=== PATIENT | female | born 1975 | race Caucasian/White ===

== ENCOUNTER 2016-10-07 04:26 | Inpatient (IN) | payer OTHER ==
[~2016-10-07] VITALS: Ht 167.6 cm; Wt 67.9 kg
--- NOTE | ~2016-10-07 | EKG ---
[address] [address] ELECTROCARDIOGRAM REPORT Name: DEBBIE CAMPO Room #: 458-P ADM IN M.R.#: [id number] Admission: 10/07/16 Attend Phys: Antoine Gutierrez Discharge: Date of : 75 Report #: [id number] THIS REPORT FOR: //name// [facility] ED Test Date: 2016-10-07 Test Time: 04:57:33 Pat Name: DEBBIE CAMPO Department: Room: 458 Gender: F Processing Supervisor: RITESH : 1975 Requested By: Marcie Lopez Order Number: [id number] MD: Claus Mcmahan Measurements Intervals [place] Rate: 109 P: 45 NM: 147 QRS: 23 QRSD: 84 T: 100 QT: 290 QTc: 391 Interpretive Statements Sinus tachycardia Probable left atrial enlargement Nonspecific repol abnormality, lateral leads No previous ECG available for comparison Electronically Signed On 10-07-2016 17:56:18 CDT by Claus Mcmahan [email or web address] <ELECTRONICALLY SIGNED> By: Claus Mcmahan MD 10/07/16 1756 D: [id number] Claus Mcmahan MD /JENNIFER
--- NOTE | ~2016-10-07 | HC ---
[facility] [place] [address] CONSULTATION Name: DEBBIE CAMPO Annette Room #: 458-P ADM IN M.R.#: [id number] Admission: 10/07/16 Attend Phys: Antoine Gutierrez Discharge: Date of : 75 Report #: [id number] THIS REPORT FOR: //name// CC: Wesley Guy DATE OF SERVICE: 10/07/2016 REASON FOR CONSULTATION: End-stage renal disease. HISTORY OF PRESENT ILLNESS: The patient is well known to our service after being followed for several weeks at [facility] on chronic dialysis. She did well at that time. Fluid volume status was well controlled. She did not have issues with shortness of breath. She finally went about 5 days ago to [facility], dialyzed to treatments at [facility], now presents with severe shortness of breath and fluid overload. PAST MEDICAL HISTORY: Longstanding systemic lupus. She had lupus nephritis. She had cervical spinal stenosis, underwent operative intervention for that. She has a history of DVT, glucose intolerance and gastroesophageal reflux disease. MEDICATIONS: At the facility include p.r.n. oxycodone, Bactrim single strength 3 times weekly, melatonin, warfarin, prednisone 17.5 mg daily, carvedilol 37.5 mg b.i.d., hydroxychloroquine 200 mg b.i.d., amlodipine 2.5 mg b.i.d. and Aranesp. PAST MEDICAL HISTORY: Also remarkable for fibromyalgia, history of autoimmune hemolytic anemia and thrombocytopenia. SOCIAL HISTORY: She has been a smoker intermittently, of course not recently with her hospitalization. She is . FAMILY HISTORY: Negative for renal disease. REVIEW OF SYSTEMS: Cannot be done as the patient is quite short of breath on CPAP and dialysis has been initiated. PHYSICAL EXAMINATION: GENERAL: Chronically ill, cushingoid appearing woman, in some respiratory distress on CPAP. SKIN: Unremarkable. SKELETAL: Cushingoid appearance. HEENT: Extraocular movements are full. Vision appears to be intact. No JVD. CHEST: Shows diffuse crackles and rhonchi. HEART: Distant but regular. ABDOMEN: Soft. [facility] [address] [place] [address] CONSULTATION Name: DEBBIE CAMPO Annette Room #: 458-P [facility] IN .R.#: [id number] Admission: 10/07/16 Attend Phys: Antoine Gutierrez Discharge: Date of : 75 Report #: [id number] EXTREMITIES: Show no edema. NEUROLOGIC: Moving all extremities. LABORATORY DATA: The hemoglobin is 8.2, white count 27.1 and platelets 229, sodium 127, potassium 4.7, chloride 92, bicarbonate 25, creatinine 2.8, BUN 28. Glucose was 215, INR 1.9. Chest x-ray showed diffuse infiltrates, probably heart failure. ASSESSMENT AND PLAN: 1. Acute respiratory insufficiency. She appears to be volume overloaded. 3.5-liter ultrafiltration dialysis is undertaken and we will see how she does with that and see if that helps take care of her shortness of breath. I will actually increase that up to 4 liters on ultrafiltration and she may will need dialysis again tomorrow. She will have to be reevaluated for that. 2. Systemic lupus with lupus nephritis. 3. Diabetes mellitus, steroid dependent. 4. History of bipolar disorder. 5. History of autoimmune hemolytic anemia. 6. History of deep venous thrombosis, on chronic warfarin. 7. Possible pneumonia. She is being seen by Pulmonary. We will have to see how that checks out. She does have a very high white count. <ELECTRONICALLY SIGNED> By: John Simental MD 10/08/16 0718 0909 1049 Paulo Lepe MD /nt
--- NOTE | ~2016-10-07 | 2DMMODE ---
[facility] [address] [place] [address] 2 D/M-MODE ECHOCARDIOGRAM Name: DEBBIE CAMPO Room #: 458-P ADM IN ..#: [id number] Admission: 10/07/16 Attend Phys: Wesley Bates Discharge: Date of : 75 Date of Service: 10/07/16 1338 Report #: [id number] THIS REPORT FOR: //name// APPROVED REPORT Study performed: 10/07/2016 12:09:44 EXAM: Comprehensive 2D, Doppler, and color-flow Echocardiogram Patient Location: Bedside Room #: 458 Status: routine Other Information Study Quality: Adequate/patient sitting up in bed on CPAP. Indications CHF, ESRD, respiratory distress. 2D Dimensions RVDd: 36.46 mm LVEF(%): 61.77 (>50%) IVSd: 9.41 (7-11mm) LVOT Diam: 19.74 (18-24mm) LVDd: 52.16 mm PWd: 9.26 (7-11mm) Ascending Ao: 27.74 (22-36mm) LVDs: 34.71 (25-40mm) Aortic Root: 29.96 mm Wheat's LVEF: 61.77 % Volumes Left Atrial Volume (Systole) Single Plane 4CH: 46.00 mL Single Plane 2CH: 35.24 mL LA ESV Index: 27.00 mL/m2 Aortic Valve AoV Peak Pankaj.: 1.85 m/s AO Peak Gr.: 13.64 mmHg LVOT Max P.17 mmHg LVOT Max V: 1.02 m/s RANJIT Vmax: 1.69 cm2 Mitral Valve E/A Ratio: 1.6 MV Decel. Time: 225.37 ms MV E Max Pankaj.: 1.41 m/s MV A Pankaj.: 0.89 m/s MV PHT: 65.36 ms [facility] [place] [address] 2 D/M-MODE ECHOCARDIOGRAM Name: DEBBIE CAMPO Room #: 458-P [facility] IN .R.#: [id number] Admission: 10/07/16 Attend Phys: Wesley Bates Discharge: Date of : 75 Date of Service: 10/07/16 1338 Report #: [id number] IVRT: 48.44 ms Pulmonary Valve PV Peak Pankaj.: 1.16 m/s PV Peak Gr.: 5.41 mmHg Pulmonary Vein P Vein S: 0.54 m/s P Vein D: 0.56 m/s P Vein S/D Ratio: 0.96 Tricuspid Valve TR Peak Pankaj.: 3.59 m/s RAP Estimate: 5.00 mmHg TR Peak Gr.: 51.64 mmHg PA Pressure: 57.00 mmHg Left Ventricle The left ventricle is normal size. There is normal LV segmental wall motion. There is normal left ventricular wall thickness. Left ventricular systolic function is normal. LVEF is 55-60%. The left ventricular diastolic function is normal. Right Ventricle The right ventricle is normal size. The right ventricular systolic function is normal. Atria The left atrium size is normal. The right atrium size is normal. Aortic Valve The aortic valve is normal in structure. No aortic regurgitation is present. There is no aortic valvular stenosis. Mitral Valve Mitral valve is calcified. Moderate to severe mitral regurgitation No evidence of mitral valve stenosis. Tricuspid Valve The tricuspid valve is normal in structure. There is moderate tricuspid regurgitation. The right atrial pressure is estimated at 5 mmHg. There is moderate pulmonary hypertension with an estimated PAP of 50-55mmHg. Pulmonic Valve The pulmonary valve is normal in structure. Mild pulmonic regurgitation. [address] [address] 2 D/M-MODE ECHOCARDIOGRAM Name: DEBBIE CAMPO Annette Room #: 458-P [facility] IN [facility]#: [id number] Admission: 10/07/16 Attend Phys: Wesley Bates Discharge: Date of : 75 Date of Service: 10/07/16 1338 Report #: [id number] [employer] The aortic root is normal in size. The ascending aorta is normal in size. IVC is normal in size and collapses >50% with inspiration. Pericardium There is no pericardial effusion. <Conclusion> The left ventricle is normal size. LVEF is 55-60%. The aortic valve is normal in structure. Mitral valve is calcified. Moderate to severe mitral regurgitation The tricuspid valve is normal in structure. There is moderate tricuspid regurgitation. The right atrial pressure is estimated at 5 mmHg. There is moderate pulmonary hypertension with an estimated PAP of 50-55mmHg. The pulmonary valve is normal in structure. Mild pulmonic regurgitation. <ELECTRONICALLY SIGNED> By: Ramirez Lennon MD 10/07/16 1338 1338 1338 Ramirez Lennon MD /INF
--- NOTE | ~2016-10-07 | HC ---
[facility] [place] [address] CONSULTATION Name: DEBBIE CAMPO Room #: 458-P ADM IN M.R.#: [id number] Admission: 10/07/16 Attend Phys: Antoine Gutierrez Discharge: Date of : 75 Report #: [id number] THIS REPORT FOR: //name// CC: Wesley Guy DATE OF SERVICE: 10/07/2016 REASON FOR CONSULTATION: Respiratory failure. IMPRESSION: 1. Acute on chronic respiratory failure. 2. Bilateral infiltrates. 3. Immunosuppression. 4. History of lupus. 5. Chronic renal failure. 6. Mitral regurgitation. 7. Pulmonary hypertension. 8. Diabetes. 9. Bipolar disorder. 10. History of autoimmune hemolytic anemia. 11. History of deep venous thrombosis, leg and arm with IVC filter and warfarin. PLAN: Antibiotics per ID, aerosol therapy, BiPAP. We will do a venous Doppler. Continue anticoagulation. We will ask Dr. Kc to assist. HISTORY OF PRESENT ILLNESS: This is a very pleasant 41-year-old female with history of lupus, lupus nephritis, history of DVT, was doing well yesterday and per family today, had progressive shortness of breath. HOME MEDICATIONS: Included oxycodone, Bactrim 3 times a week, melatonin, prednisone 17.5 daily, Coreg, hydroxychloroquine, amlodipine and Aranesp. SOCIAL HISTORY: Positive tobacco in past, . FAMILY HISTORY: Noncontributory. ALLERGIES: DEMEROL, MORPHINE, NICOTINE AND CIPRO. PAST SURGICAL HISTORY: Include hysterectomy and neck surgery. REVIEW OF SYSTEMS: Positive shortness of breath, cough, leg weakness and GERD, dialysis, right chest dialysis catheter, no nausea or vomiting. PHYSICAL EXAMINATION: VITAL SIGNS: Temperature 98.6, pulse 99, respirations 33, BP 110/76. [facility] [address] [place] [address] CONSULTATION Name: DEBBIE CAMPO Annette Room #: 458-P [facility] IN .R.#: [id number] Admission: 10/07/16 Attend Phys: Antoine Gutierrez Discharge: Date of : 75 Report #: [id number] EYES: Negative icterus. NECK: BiPAP on. LUNGS: Crackles bilaterally. HEART: Regular with murmur. ABDOMEN: Bowel sounds present. EXTREMITIES: Showed no cyanosis or edema, on BiPAP. LABORATORY DATA: pH 7.49, pCO2 of 33, pO2 88 on 50%. Echo showed PA pressure 50-55, ejection fraction 55-60, moderate to severe MR. White count 27, hemoglobin 8.2, platelets 229, we will follow closely with you. By: 1543 0789 Davon Ibanez MD /nt
--- NOTE | ~2016-10-07 | H ---
[facility] [place] [address] HISTORY AND PHYSICAL Name: DEBBIE CAMPO Annette Room #: 458-P ADM IN M.R.#: [id number] Admission: 10/07/16 Attend Phys: Antoine Gutierrez Discharge: Date of : 75 Report #: [id number] THIS REPORT FOR: //name// CC: Wesley Guy DATE OF SERVICE: 10/07/2016 CHIEF COMPLAINT: Shortness of breath. HISTORY OF PRESENT ILLNESS: The patient is a 41-year-old female who was transferred from an LTAC facility for evaluation of shortness of breath. She has been hospitalized there for a month with a combination of respiratory and renal issues. She had an episode a couple of weeks ago where she had pulmonary edema and received extra hemodialysis; however, yesterday, the EMS reported that her O2 sats were about 60-70% on room air. They attempted to place CPAP, which she was not tolerate to. Normally, she wears 5 liters of oxygen at baseline. Has had apparent episode of respiratory failure requiring intubation in the past. PAST MEDICAL HISTORY: Lupus nephritis, end-stage renal disease, DVT, sepsis, GERD, diabetes, bipolar, hysterectomy, spinal stenosis. PAST SURGICAL HISTORY: Unknown. FAMILY HISTORY: Noncontributory. SOCIAL HISTORY: No chronic alcohol or tobacco use. ALLERGIES: DEMEROL, MORPHINE, NICOTINE, CIPRO. MEDICATIONS: Senokot, Tylenol, Bactrim, Coumadin, melatonin, DuoNeb, Norvasc, Protonix, prednisone, Coreg, Plaquenil, Levemir, oxycodone. REVIEW OF SYSTEMS: She cannot provide a review. PHYSICAL EXAMINATION: VITAL SIGNS: Temperature 36.9, pulse 104, respirations 17, blood pressure 141/95, O2 sat 92% to 98% on BiPAP. GENERAL: She looks chronically ill. She opens her eyes to her name but just back to sleep. HEAD AND NECK: Unremarkable. LUNGS: Diminished breath sounds in the base. HEART: Regular, no murmur. There is a hemodialysis catheter in the right upper chest, ongoing dialysis. ABDOMEN: Soft, normoactive bowel sounds. EXTREMITIES: No edema. [facility] [address] [place] [address] HISTORY AND PHYSICAL Name: DEBBIE CAMPO Room #: 458-P [facility] IN ..#: [id number] Admission: 10/07/16 Attend Phys: Antoine Gutierrez Discharge: Date of : 75 Report #: [id number] NEUROLOGIC: She moves all extremities, global strength about 3/5 throughout. LABORATORY DATA: Chest x-ray reviewed. ASSESSMENT: 1. Acute hypoxic respiratory failure. 2. Metabolic acidosis. 3. End-stage renal disease. 4. Lupus. 5. Deep venous thrombosis. 6. Healthcare-associated pneumonia. 7. Sepsis due to the above. 8. Diabetes type 2. PLAN: She is receiving ultrafiltration currently. Dr. Ibanez has assessed her as well. I will continue her medications and transfer including her Coreg and prednisone and Coumadin. For now, hold Plaquenil to understanding a possible infection and I have asked Dr. Hector Guy to see her in consultation. She remains critically ill. <ELECTRONICALLY SIGNED> By: Nii Romero MD 10/08/16 0959 1016 1208 Nii Romero MD /nt
--- NOTE | ~2016-10-07 | H ---
[facility] [place] [address] HISTORY AND PHYSICAL Name: DEBBIE CAMPO Room #: 458-P ADM IN M.R.#: [id number] Admission: 10/07/16 Attend Phys: Antoine Gutierrez Discharge: Date of : 75 Report #: [id number] THIS REPORT FOR: //name// CC: Wesley Guy INFECTIOUS DISEASE CONSULTATION REASON FOR CONSULTATION: I was asked to evaluate concerning bilateral pulmonary infiltrates. HISTORY OF PRESENT ILLNESS: The patient was a 41-year-old with known systemic lupus erythematosus with lupus nephritis and pulmonary disease. In the last 48 hours, she has had progressive shortness of breath. Now on BiPAP. Chest x-ray had shown bilateral pulmonary infiltrates, consistent with edema. No fever, chills or sweats. She has had intermittent cough, with no sputum production. She has had no recent antibiotic use, other than prophylaxis with Bactrim. She has been institutionalized for the last 4 months. Initially, she was diagnosed with lupus pneumonia off bronchoscopy. Increased corticosteroids. She had diffuse lower extremity weakness and underwent an anterior cervical fusion last month. This was for cervical spinal stenosis. She underwent dialysis today. Still is on BiPAP. ALLERGIES: DEMEROL, MORPHINE, NICOTINE and CIPRO. PAST MEDICAL HISTORY: Lupus nephritis; right chest dialysis catheter, having been on dialysis now for the last 3 months; spinal stenosis; DVT; gastroesophageal reflux; fibromyalgia; autoimmune hemolytic anemia and thrombocytopenia. FAMILY HISTORY: Noncontributory. SOCIAL HISTORY: Past smoker. She is . REVIEW OF SYSTEMS: Noted above with no nausea, vomiting or diarrhea. She does urinate. No rash. She has had no IOS DEVELOPER disease. PHYSICAL EXAMINATION: VITAL SIGNS: Afebrile and hemodynamically stable. GENERAL: She was alert and cooperative. She is on 70% CPAP by mask. HEENT: Eyes are unremarkable. NECK: Supple. Anterior neck incision unremarkable. LUNGS: Crackles heard posteriorly. HEART: Regular, without murmur or rub. Right chest dialysis catheter site unremarkable. ABDOMEN: Obese, soft, nontender. No hepatosplenomegaly or mass appreciated. EXTREMITIES: Unremarkable. [facility] [address] [place] [address] HISTORY AND PHYSICAL Name: DEBBIE CAMPO Annette Room #: 458-P [facility] IN [facility]#: [id number] Admission: 10/07/16 Attend Phys: Antoine Gutierrez Discharge: Date of : 75 Report #: [id number] LABORATORY DATA: Hemoglobin 8.2, WBC 27.5, segs 87%, lymphs 10% and platelet count 229,000. Chest x-ray, bilateral pulmonary infiltrates, consistent with congestive heart failure. Sodium 127, potassium 4.7, bicarbonate 25 and creatinine 2.8. ABG on 70%, pO2 of 71, pCO2 of 41 and pH of 7.35. Blood cultures are negative so far. IMPRESSION: A 41-year-old with bilateral pulmonary infiltrates, immunosuppressed on prednisone for lupus. Cause of her infiltrate, I suspect, most likely is edema for she did change dialysis program recently. Her echocardiogram shows normal ejection fraction. There was [id number] mitral regurgitation and moderate pulmonary hypertension. Other consideration would be flare-up of her lupus pulmonary disease. PLAN: Recommend continuing IV antibiotic therapy pending cultures. We will attempt sputum culture. I have discussed with pulmonary medicine. We will see how she does with aggressive dialysis. <ELECTRONICALLY SIGNED> By: Hector Guy MD 10/09/16 0905 1350 1432 Hector Guy MD /nt
--- NOTE | ~2016-10-07 | D ---
[facility] [place] [address] DISCHARGE SUMMARY Name: PAULINEEUGENEDEBBIE Annette Room #: 458-P [facility] IN M.R.#: [id number] Admission: 10/07/16 Attend Phys: Antoine Gutierrez Discharge: 10/15/16 Date of : 75 Report #: [id number] THIS REPORT FOR: //name// CC: Wesley Guy FINAL DIAGNOSES: 1. Acute hypoxic respiratory failure. 2. End-stage renal disease. 3. Pulmonary edema. 4. Hypertension. 5. Lupus. 6. Chronic anticoagulation. 7. History of deep venous thrombosis. 8. History of inferior vena cava filter. HOSPITAL COURSE: The patient was admitted with shortness of breath, initially to ICU, requiring BiPAP. She was diagnosed with pulmonary edema and received additional aggressive hemodialysis. She had additional sessions during her stay. Her weight came down 6-8 kg during her stay. Echocardiogram revealed mitral regurgitation. The cardiology service did not feel that there was further treatment indicated as she had already been assessed at and felt to be a nonsurgical candidate. Other home medications were continued. She had another episode of pulmonary edema with hypoxia requiring BiPAP, on hemodialysis. Ultimately, the renal team talked to her about fluid restrictions, which she was really not complying with. We felt this seemed to be the main issue that with extra fluids and mitral regurg, she developed pulmonary edema. The last 4 hospital day, she was stable on oxygen via nasal cannula between 2 and 4 liters, she was not requiring BiPAP and remained medically stable. PHYSICAL EXAMINATION ON THE DAY OF DISCHARGE: GENERAL/VITAL SIGNS: She was awake and alert with stable vital signs. LUNGS: Clear. HEART: Regular. ABDOMEN: Soft, normoactive bowel sounds. EXTREMITIES: No edema. DISPOSITION: Return to [facility] under the care of Dr. Guy, renal diet, 1500 mL fluid restrictions. We will transfer medications for continued dialysis. <ELECTRONICALLY SIGNED> By: Nii Romero MD 10/15/16 1623 0943 1245 iNi Romero MD /nt
--- NOTE | ~2016-10-07 | HC ---
[facility] [address] [place] [address] CONSULTATION Name: DEBBIE CAMPO Room #: 458-P ADM IN M.R.#: [id number] Admission: 10/07/16 Attend Phys: Antoine Gutierrez Discharge: Date of : 75 Report #: [id number] THIS REPORT FOR: //name// CC: Wesley YEE DICTATION By: 1057 1423 Davon Ibanez MD /nt
[2016-10-07 04:58] LABS: ABG SAMPLE TYPE ARTERIAL; BE(vivo) -6.7 mmol/L (-2 to +3); HCO3 19.8 mmol/L (22.0-26.0); LACTATE 2.13 mmol/L (0.5-2.0); O2(CT) 12.5 mL/dL (15.0-23.0); O2Hb 95.4 % (92.0-98.0); PCO2 44.1 mmHg (35.0-45.0); PO2 104.2 mmHg (80.0-100.0); STICK SITE R.RADIAL; sO2 97.1 % (92.0-98.0); tCO2 21.1 mmol/L (24.0-30.0)
[2016-10-07 05:02] LABS: HEMATOCRIT 25.3 % (37.0-47.0); HEMOGLOBIN 8.2 gm/dL (12.0-15.0); MANUAL DIFF YES; MCH 28.8 pg (26.0-34.0); MCHC 32.2 g/dL (28.0-37.0); MCV 89.4 fL (80.0-100.0); PLATELET COUNT 229 thou/uL (150-400); RBC 2.84 mil/uL (4.20-5.00); RDW 18.7 % (10.5-14.5); WBC 27.1 thou/uL (4.0-11.0)
[2016-10-07] MEDS ORDERED: PAIN & FEVER500 MG PO (05:02)
[2016-10-07] MEDS ORDERED: SENEXON-S TABL1 EACH (05:02)
[2016-10-07] MEDS ORDERED: COUMADIN 4 MG TA4 M1 PO (05:03)
[2016-10-07] MEDS ORDERED: BACTRIM DS TAB1 EACH (05:03)
[2016-10-07] MEDS ORDERED: MELATONIN5 M4 (05:03)
[2016-10-07] MEDS ORDERED: DUONEB 2.5-0.5 M3 ML INH (05:04)
[2016-10-07] MEDS ORDERED: NORVASC2.5 M1 (05:04)
[2016-10-07] MEDS ORDERED: PREDNISONE 5 MG5 MG (05:05)
[2016-10-07] MEDS ORDERED: PROTONIX 20 MG20 MG (05:05)
[2016-10-07] MEDS ORDERED: HYDROXYCHLOROQ200 M1 (05:06)
[2016-10-07] MEDS ORDERED: CARVEDILOL12.5 MG PO ×2 (05:06→09:23)
[2016-10-07 05:07] LABS: ANION GAP 10 mmol/L (7-16); BUN 28 mg/dL (7-18); CALCIUM 8.4 mg/dL (8.5-10.1); CHLORIDE 92 mmol/L (98-107); CO2 25 mmol/L (21-32); CREATININE 2.8 mg/dL (0.6-1.0); GLUCOSE 215 mg/dL (74-106); POTASSIUM 4.7 mmol/L (3.5-5.1); SODIUM 127 mmol/L (136-145)
[2016-10-07] MEDS ORDERED: DUONEB 2.5-0.5 M3 ML (05:07)
[2016-10-07] MEDS ORDERED: CALMOSEPTINE O3.5 GM TOP (05:07)
[2016-10-07] MEDS ORDERED: [UNRECOGNIZED DRUG - SUPPLY] (05:11)
[2016-10-07] MEDS ORDERED: LEVEMIR FL100 UNIT/2 SUBQ (05:12)
[2016-10-07] MEDS ORDERED: ONDANSETRON HCL4 M2 (05:12)
[2016-10-07] MEDS ORDERED: OXYCONTIN10 M1 PO (05:13)
[2016-10-07 05:16] LABS: TROPONIN-I < 0.04 ng/mL (<0.04-0.07)
[2016-10-07 06:09] LABS: INR 1.9; PROTIME 19.3 Seconds (9.3-11.4)
[2016-10-07 06:52] VITALS: BP 138/67
[2016-10-07 07:09] VITALS: BP 141/95
[2016-10-07 07:45] LABS: ABG SAMPLE TYPE ARTERIAL; BE(vivo) -1.5 mmol/L (-2 to +3); LACTATE 1.32 mmol/L (0.5-2.0); O2(CT) 11.7 mL/dL (15.0-23.0); O2Hb 90.9 % (92.0-98.0); PCO2 44.1 mmHg (35.0-45.0); PO2 71.5 mmHg (80.0-100.0); STICK SITE R.RADIAL; pH 7.354 (7.360-7.450); sO2 93.7 % (92.0-98.0); tCO2 25.4 mmol/L (24.0-30.0)
[2016-10-07 07:46] LABS: ABG COMMENT CPAP 8 SPON RR 40
[2016-10-07 08:05] LABS: ABSOLUTE NEUTROPHILS 23.6 thou/uL (1.4-8.2); ANISOCYTOSIS 2+; METAMYELOCYTES 1 %; TOTAL CELL COUNT 100
[2016-10-07 08:06] LABS: HYPOCHROMASIA 1+; POLYCHROMASIA SLIGHT
[2016-10-07] MEDS ORDERED: PROTONIX40 M4 PO (09:21)
[2016-10-07] MEDS ORDERED: VITAMIN B-1100 M1 PO (09:22)
[2016-10-07] MEDS ORDERED: BACTRIM DS TAB1 EACH PO (09:26)
[2016-10-07] MEDS ORDERED: ARANESP100 MCG/1 IJ (09:27)
[2016-10-07 12:00] VITALS: BP 110/76
[2016-10-07 14:24] LABS: ABG SAMPLE TYPE ARTERIAL; BE(vivo) 1.4 mmol/L (-2 to +3); HCO3 24.5 mmol/L (22.0-26.0); LACTATE 1.13 mmol/L (0.5-2.0); O2(CT) 11.6 mL/dL (15.0-23.0); O2Hb 95.6 % (92.0-98.0); PCO2 32.8 mmHg (35.0-45.0); PO2 87.9 mmHg (80.0-100.0); pH 7.492 (7.360-7.450); sO2 97.4 % (92.0-98.0); tCO2 25.6 mmol/L (24.0-30.0)
[2016-10-07 14:25] LABS: STICK SITE R.RADIAL
[2016-10-07 15:45] VITALS: BP 135/84
[2016-10-07 19:41] VITALS: BP 145/86
[2016-10-07 23:47] VITALS: BP 130/83
[2016-10-08 03:31] VITALS: BP 126/80
[2016-10-08 04:21] LABS: RBC 2.23 mil/uL (4.20-5.00); RDW 18.4 % (10.5-14.5)
[2016-10-08 04:24] LABS: MCH 29.2 pg (26.0-34.0); MCHC 33.7 g/dL (28.0-37.0); MCV 86.8 fL (80.0-100.0)
[2016-10-08 04:42] LABS: ALBUMIN 2.2 g/dL (3.4-5.0); CALCIUM 8.2 mg/dL (8.5-10.1)
[2016-10-08 04:48] LABS: POTASSIUM 3.6 mmol/L (3.5-5.1)
[2016-10-08 04:52] LABS: HEMATOCRIT 19.3 % (37.0-47.0); HEMOGLOBIN 6.5 gm/dL (12.0-15.0)
[2016-10-08 07:16] LABS: ABG SAMPLE TYPE ARTERIAL; BE(vivo) 5.5 mmol/L (-2 to +3); HCO3 29.3 mmol/L (22.0-26.0); O2(CT) 8.9 mL/dL (15.0-23.0); O2Hb 87.4 % (92.0-98.0); PCO2 39.6 mmHg (35.0-45.0); PO2 56.2 mmHg (80.0-100.0); STICK SITE L.RADIAL; pH 7.487 (7.360-7.450); sO2 91.4 % (92.0-98.0); tCO2 30.5 mmol/L (24.0-30.0)
[2016-10-08 08:20] VITALS: BP 153/88
[2016-10-08 12:25] VITALS: BP 105/76
[2016-10-08 14:04] VITALS: BP 112/74; BP 136/88
[2016-10-08 16:00] VITALS: BP 124/74
[2016-10-08 20:00] VITALS: BP 109/75
[2016-10-09 04:05] VITALS: BP 138/84
[2016-10-09 06:20] LABS: HEMATOCRIT 25.1 % (37.0-47.0); HEMOGLOBIN 8.3 gm/dL (12.0-15.0); MCH 28.4 pg (26.0-34.0); MCHC 33.1 g/dL (28.0-37.0); MCV 86.1 fL (80.0-100.0); RBC 2.92 mil/uL (4.20-5.00); RDW 18.3 % (10.5-14.5); WBC 7.2 thou/uL (4.0-11.0)
[2016-10-09 06:27] LABS: ALBUMIN 2.3 g/dL (3.4-5.0); CALCIUM 8.6 mg/dL (8.5-10.1); CREATININE 2.2 mg/dL (0.6-1.0); PHOSPHORUS 2.6 mg/dL (2.5-4.9); POTASSIUM 3.6 mmol/L (3.5-5.1)
[2016-10-09 08:00] VITALS: BP 146/90
[2016-10-09 16:00] VITALS: BP 127/105
[2016-10-09 19:12] VITALS: BP 136/91
[2016-10-10 03:34] VITALS: BP 149/97
[2016-10-10 06:02] LABS: HEMATOCRIT 24.8 % (37.0-47.0); HEMOGLOBIN 8.3 gm/dL (12.0-15.0); MCH 28.6 pg (26.0-34.0); MCHC 33.6 g/dL (28.0-37.0); MCV 85.1 fL (80.0-100.0); RBC 2.91 mil/uL (4.20-5.00); RDW 17.6 % (10.5-14.5); WBC 7.9 thou/uL (4.0-11.0)
[2016-10-10 06:08] LABS: INR 1.8; PROTIME 18.8 Seconds (9.3-11.4)
[2016-10-10 06:22] LABS: ALBUMIN 2.6 g/dL (3.4-5.0); CALCIUM 8.9 mg/dL (8.5-10.1); CREATININE 3.1 mg/dL (0.6-1.0); PHOSPHORUS 3.4 mg/dL (2.5-4.9); POTASSIUM 4.3 mmol/L (3.5-5.1)
[2016-10-10 09:57] VITALS: BP 157/116
[2016-10-10 16:00] VITALS: BP 149/99
[2016-10-10 17:47] VITALS: BP 143/95
[2016-10-10 18:07] LABS: BLASTOMYCES-IMMUNODIFF Negative (Neg:<1:1); HISTOPLASMA-IMMUNODIFF Negative (Neg:<1:1)
[2016-10-10 19:43] VITALS: BP 121/81
[2016-10-11 04:19] VITALS: BP 142/91
[2016-10-11 06:55] LABS: INR 2.1; PROTIME 21.8 Seconds (9.3-11.4)
[2016-10-11 08:14] VITALS: BP 159/104
[2016-10-11 13:14] VITALS: BP 138/95
[2016-10-11 17:08] LABS: ASPERGILLUS FLAVUS-ID Negative (Neg:<1:1); ASPERGILLUS FUMIGATUS-ID Negative (Neg:<1:1); ASPERGILLUS NIGER-ID Negative (Neg:<1:1)
[2016-10-12 03:38] VITALS: BP 129/89
[2016-10-12 03:43] LABS: HEMATOCRIT 25.2 % (37.0-47.0); HEMOGLOBIN 8.5 gm/dL (12.0-15.0); MCH 28.5 pg (26.0-34.0); MCHC 33.7 g/dL (28.0-37.0); MCV 84.6 fL (80.0-100.0); RBC 2.98 mil/uL (4.20-5.00); RDW 17.6 % (10.5-14.5); WBC 10.1 thou/uL (4.0-11.0)
[2016-10-12 04:03] LABS: ALBUMIN 2.6 g/dL (3.4-5.0); CALCIUM 8.6 mg/dL (8.5-10.1); PHOSPHORUS 3.8 mg/dL (2.5-4.9); POTASSIUM 3.8 mmol/L (3.5-5.1)
[2016-10-12 07:27] VITALS: BP 153/100
[2016-10-12 12:20] VITALS: BP 156/93
[2016-10-12 19:44] VITALS: BP 161/100
[2016-10-13 03:40] VITALS: BP 134/91
[2016-10-13 07:14] VITALS: BP 144/94
[2016-10-13 11:24] VITALS: BP 127/84
[2016-10-13 16:25] VITALS: BP 156/99
[2016-10-13 19:16] VITALS: BP 137/92
[2016-10-14 03:51] VITALS: BP 156/100
[2016-10-14 12:02] VITALS: BP 158/83
[2016-10-14 15:37] VITALS: BP 134/84
[2016-10-14 19:33] VITALS: BP 131/97
[2016-10-15 02:18] VITALS: BP 138/94
[2016-10-15 02:30] VITALS: BP 138/94
[2016-10-15 03:35] VITALS: BP 141/96
[2016-10-15 08:00] VITALS: BP 141/96; BP 156/96
[2016-10-15] MEDS ORDERED: AMLODIPINE BESYL5 M1 PO (09:37)
[2016-10-15] MEDS ORDERED: AUGMENTIN 500-1 EACH PO (09:37)
[2016-10-15] MEDS ORDERED: HYDROCODON-ACE1 EAC7 PO (09:37)
[2016-10-15 12:40] VITALS: BP 131/80
== END 2016-10-15 14:46 | DRG 871 ==
LOC: ER 04:26 → EROBS 05:43 → 4W 05:43
PROVIDERS: Emergency Medicine; Internal Medicine; Internal Medicine Geriatric Medicine; Internal Medicine Nephrology; Internal Medicine Pulmonary Disease; Specialist
PROC: 5A09457 Assistance with Respiratory Ventilation, 24-96 Consecutive Hours, Continuous Positive Airway Pressure (ICD-10-PCS; principal; 2016-10-07)
PROC: 30233N1 Transfusion of Nonautologous Red Blood Cells into Peripheral Vein, Percutaneous Approach (ICD-10-PCS; 2016-10-08)
PROC: 5A1D60Z (ICD-10-PCS; 2016-10-08)
DX: A41.9 Sepsis, unspecified organism (principal); J18.9 Pneumonia, unspecified organism; N18.6 End stage renal disease; J96.21 Acute and chronic respiratory failure with hypoxia; I13.2 Hypertensive heart and chronic kidney disease with heart failure and with stage 5 chronic kidney disease, or end stage renal disease; D59.1 Other autoimmune hemolytic anemias; E87.2 Acidosis; I50.30 Unspecified diastolic (congestive) heart failure; K21.9 Gastro-esophageal reflux disease without esophagitis; E11.22 Type 2 diabetes mellitus with diabetic chronic kidney disease; I08.1 Rheumatic disorders of both mitral and tricuspid valves; F31.9 Bipolar disorder, unspecified; M79.7 Fibromyalgia; M32.14 Glomerular disease in systemic lupus erythematosus; M32.9 Systemic lupus erythematosus, unspecified; I27.2 Other secondary pulmonary hypertension; E66.9 Obesity, unspecified; Z79.01 Long term (current) use of anticoagulants; Y95 Nosocomial condition; Z79.899 Other long term (current) drug therapy; Z87.891 Personal history of nicotine dependence; Z68.24 Body mass index [BMI] 24.0-24.9, adult; Z99.2 Dependence on renal dialysis; Z90.710 Acquired absence of both cervix and uterus; Z88.1 Allergy status to other antibiotic agents; Z88.5 Allergy status to narcotic agent; Z88.8 Allergy status to other drugs, medicaments and biological substances; Z86.718 Personal history of other venous thrombosis and embolism
CPT/HCPCS: 10045; 32100

== ENCOUNTER 2016-10-16 03:16 | Inpatient (IN) | payer OTHER ==
[~2016-10-16] VITALS: Ht 167.6 cm; Wt 70.8 kg
[2016-10-16] VITALS (30 sets, daily range): BP systolic 117–178; BP diastolic 63–106
--- NOTE | ~2016-10-16 | EKG ---
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 : 1975 Requested By: Chris Goetz Order Number: [id number] MD: Chris Goetz Measurements Intervals [place] Rate: 99 P: 51 [place]: 142 QRS: 16 QRSD: 83 T: 140 QT: 413 QTc: 531 Interpretive Statements Sinus rhythm Biatrial enlargement Probable LVH with secondary repol abnrm Prolonged QT interval Compared to ECG 10/07/2016 04:57:33 no significant change was found Electronically Signed On 10-19-2016 11:57:03 CDT by Chris Goetz [email or web address] <ELECTRONICALLY SIGNED> By: Chris Goetz MD, [facility] 10/19/16 1157 0721 07 Chris Goetz MD, [facility] /EPI
--- NOTE | ~2016-10-16 | H ---
[facility] [place] [address] HISTORY AND PHYSICAL Name: DEBBIE CAMPO Room #: 237-P ADM IN M.R.#: [id number] Admission: 10/16/16 Attend Phys: Antoine Gutierrez Discharge: Date of : 75 Report #: [id number] THIS REPORT FOR: //name// CC: Davon Guy CHIEF COMPLAINT: Shortness of breath. HISTORY OF PRESENT ILLNESS: The patient is a 41-year-old female with multiple medical problems, came back from the senior living facility after just being discharged for shortness of breath. She recently just had about a 10-day hospital stay for pulmonary edema requiring extra hemodialysis sessions. During this time, an echocardiogram revealed mitral and tricuspid regurgitation. This is similar to studies that were performed according to the family at [facility] late last year, perhaps in February 2016. Her sister, who is a nurse, reports at that time the cardiology team in did not feel her valve needed surgical replacement. Her sister said that she had very similar sudden hypoxic episodes while at , but perhaps not as severe. She had one or two other episodes very similar while she was in a senior living facility in [place] and was admitted urgently to [facility] for emergent hemodialysis related to the sudden developed of pulmonary edema and severe hypoxia even to the point of requiring BiPAP. While she was at [facility] facility, she had 2 episodes that required earlier hemodialysis and the use of either high-flow nasal cannula oxygen and/or BiPAP. She was just in [facility] for about a week when she developed a sudden onset in the middle of night of hypoxia and pulmonary edema requiring admission to ICU here with BiPAP and emergent hemodialysis during this last hospital stay. I believe she required 4 dialysis sessions during her stay for fluid and weight removal. Last night I was called that she was complaining of shortness of breath, although her oxygen saturations were in the mid 90s on nasal cannula. She attempted placement of BiPAP which she could not tolerate. By the time EMS arrived and transported her to ER, she was severely hypoxic with sats in the 80s on a nonrebreather. 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 History of DVT, she has an IVC filter. PAST SURGICAL HISTORY: During her hospital stay at , they performed a left carotid endarterectomy. FAMILY HISTORY: Unknown. SOCIAL HISTORY: She is and was living at home prior to this illness. She has been hospitalized since approximately February 2016. ALLERGIES: DEMEROL, MORPHINE, NICOTINE, CIPRO. [facility] [address] [place] [address] HISTORY AND PHYSICAL Name: DEBBIE CAMPO Annette Room #: 237-P ADM IN M.R.#: [id number] Admission: 10/16/16 Attend Phys: Antoine Gutierrez Discharge: Date of : 75 Report #: [id number] MEDICATIONS: Amoxicillin, DuoNeb, Coumadin, Coreg 37.5 b.i.d., Norvasc 5 mg, hydrocodone 5 mg, Senokot, prednisone 17.5 mg, thiamine, melatonin. REVIEW OF SYSTEMS: She is currently on BiPAP, on hemodialysis. She is awake and alert. PHYSICAL EXAMINATION: VITAL SIGNS: Temperature 37.1, pulse 108, respirations 22, blood pressure 137/92 and O2 sat 100% on BiPAP. GENERAL: She looks chronically ill. LUNGS: Clear anteriorly. HEART: Regular. ABDOMEN: Soft, normoactive bowel sounds. EXTREMITIES: No edema. ASSESSMENT: 1. Acute hypoxic respiratory failure. 2. End-stage renal disease. 3. Acute diastolic congestive heart failure with pulmonary edema. 4. Mitral regurgitation. 5. Lupus. 6. Anemia of chronic disease. 7. History of deep venous thrombosis with IVC filter. 8. Chronic Coumadin use. PLAN: She is receiving urgent hemodialysis now for the pulmonary edema. I think that we need to reassess her cardiac status with consideration of this valvular heart disease as the persistent for flash pulmonary edema events, which are causing recurrent hypoxic episodes and readmission to the hospital. This has now occurred twice at [facility], at least once at [facility] and lesser degree as well at [facility] facility requiring high flow oxygen, BiPAP and urgent hemodialysis. I have spoken to her sister at the bedside. <ELECTRONICALLY SIGNED> By: Nii Romero MD 10/17/16 1145 1401 1531 Nii Romero MD /nt
--- NOTE | ~2016-10-16 | EKG ---
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 : 1975 Requested By: Belle Gordon Order Number: [id number] MD: Reynaldo Weiner Measurements Intervals [place] Rate: 70 P: 60 CA: 129 QRS: 114 QRSD: 111 T: 263 QT: 481 QTc: 520 Interpretive Statements Sinus rhythm Ventricular premature complex Nonspecific T abnormalities, diffuse leads Prolonged QT interval Compared to ECG 10/17/2016 07:21:03 Ventricular premature complex(es) now present T-wave abnormality now present Electronically Signed On 10-22-2016 8:57:47 CDT by Reynaldo Weiner [email or web address] <ELECTRONICALLY SIGNED> By: Reynaldo Weiner MD 10/22/16 0857 1655 1655 Reynaldo Weiner MD /[facility]
--- NOTE | ~2016-10-16 | 2DMMODE ---
[place] [address] [address] [place] [address] 2 D/M-MODE ECHOCARDIOGRAM Name: JAHAIRADEBBIE A Room #: 217-P [facility] IN ..#: [id number] Admission: 10/16/16 Attend Phys: Wesley Bates Discharge: Date of : 75 Date of Service: 10/25/16 1701 Report #: [id number] THIS REPORT FOR: //name// APPROVED REPORT Study performed: 10/25/2016 12:23:29 EXAM: Comprehensive 2D, Doppler, and color-flow Echocardiogram Patient Location: Echo lab Room #: 217 Other Information Study Quality: Technically LimitedTechnically Difficult Technically limited study due to inability to position patient/patient sitting up, post operative dressings. 2D Dimensions LVEF(%): 51.53 (>50%) IVSd: 11.30 (7-11mm) LVOT Diam: 19.74 (18-24mm) LVDd: 39.00 mm PWd: 11.22 (7-11mm) Ascending Ao: 29.44 (22-36mm) LVDs: 28.90 (25-40mm) Aortic Root: 28.89 mm IVC: 16.00 mm Wheat's LVEF: 51.53 % Aortic Valve AoV Peak Pankaj.: 1.53 m/s AO Peak Gr.: 9.30 mmHg LVOT Max P.22 mmHg LVOT Max V: 0.90 m/s RANJIT Vmax: 1.80 cm2 Mitral Valve E/A Ratio: 2.0 MV Decel. Time: 280.46 ms MV E Max Pankaj.: 1.27 m/s MV A Pankaj.: 0.63 m/s MV PHT: 81.33 ms Pulmonary Valve PV Peak Pankaj.: 1.12 m/s PV Peak Gr.: 5.05 mmHg Tricuspid Valve RAP Estimate: 5.00 mmHg [facility] [place] [address] 2 D/M-MODE ECHOCARDIOGRAM Name: JAHAIRADEBBIE A Room #: 217-P [facility] IN ..#: [id number] Admission: 10/16/16 Attend Phys: Wesley Bates Discharge: Date of : 75 Date of Service: 10/25/16 1701 Report #: [id number] Left Ventricle The left ventricle is normal size. There is normal LV segmental wall motion. There is normal left ventricular wall thickness. The left ventricular systolic function is normal. The left ventricular ejection fraction is within the normal range. LVEF is 55-60%. This study is not technically sufficient to allow evaluation of the LV diastolic function. Right Ventricle Right ventricle is not well visualized. Atria The left atrium size is normal. The right atrium size is normal. Aortic Valve The aortic valve is grossly normal in structure. No aortic regurgitation is present. There is no aortic valvular stenosis. Mitral Valve The mitral valve appears normal in structure S/P mitral valve repair 10/21/16. 28 mm Physio II annuloplasty ring is noted in the mitral position. There is no mitral valve regurgitation noted. No evidence of mitral valve stenosis. Tricuspid Valve Unable to assesss PA pressure tricuspid valve not well visualized. Pulmonic Valve Pulmonic valve is not well visualized. Great Vessels The aortic root is normal in size. IVC is normal in size and collapses >50% with inspiration. Pericardium There is a small pericardial effusion vs pericardial thickening. <Conclusion> The left ventricular systolic function is normal. There is normal LV segmental wall motion. LVEF is 55-60%. The aortic valve is grossly normal in structure. No aortic regurgitation or stenosis [place] [id number] 2 D/M-MODE ECHOCARDIOGRAM Name: DBEBIE CAMPO Room #: 217-P [facility] IN [facility]#: [id number] Admission: 10/16/16 Attend Phys: Wesley Bates Discharge: Date of : 75 Date of Service: 10/25/161700 Report #: [id number] 28 mm Physio II annuloplasty ring is noted in the mitral position. There is no mitral valve regurgitation or stenosis There is a small pericardial effusion vs pericardial thickening. <ELECTRONICALLY SIGNED> By: Chris Goetz MD, [facility] 10/25/161700 00 00 Chris Goetz MD, [facility] /INF
--- NOTE | ~2016-10-16 | S ---
[facility] [place] [address] SURGICAL PATH RPT PROCEDURE Name: DEBBIE CAMPO Room #: 217-P ADM IN M.R.#: [id number] Admission: 10/16/16 Date of : 75 Discharge: Report #: [id number] Path Case #: [id number] PATHOLOGY REPORT COLLECTION DATE: 10/21/2016 RECEIVED DATE: 10/21/2016 SUBMITTING PHYS: Dr. Franko Robles OTHER PHYS: Dr. Wesley Ibanez SPECIMEN(S) RECEIVED: A.Mitral valve vegitation * * * * * * * * * * * * FINAL DIAGNOSIS: "Mitral valve vegetation", valve replacement: - Fragment of heart valve with calcific atherosclerosis. COMMENT: No significant inflammation is identified. Clinical correlation is recommended. (CLW:pit; 10/23/2016) PATHOLOGIST: Radha Mcdonald M.D. REPORT ELECTRONICALLY SIGNED BY: Radha Mcdonald M.D. DATE/TIME: 10/23/2016 17:05 * * * * * * * * * * * * GROSS PATHOLOGY: The specimen is received in formalin labeled "Debbie Campo mitral valve vegetation". Received are multiple segments of pale paul soft tissue measuring 0.4 x 0.3 x 0.1 cm in aggregate dimensions. The specimen is filtered and entirely submitted in cassette A1. (CAA; 10/22/2016) CLINICAL HISTORY: Mitral valve regurgitation INITIAL CPT CODE(S): A; 78557 Professional services performed by [facility] at [facility] [address], [place] [address] Technical services performed by [facility] at [address] [place] [address] [address] [place] [address] SURGICAL PATH RPT PROCEDURE Name: JAHAIRADEBBIE A Room #: 217-P ADM IN M.R.#: [id number] Admission: 10/16/16 Date of : 75 Discharge: Report #: [id number] Path Case #: [id number] [place] [address]. [facility] [address] [address] PHONE: [phone] DIRECTOR: Spencer Sebastian M.D. * * * END OF REPORT * * *
--- NOTE | ~2016-10-16 | EKG ---
[address] [address] ELECTROCARDIOGRAM REPORT Name: DEBBIE CAMPO Room #: 240-P ADM IN M.R.#: [id number] Admission: 10/16/16 Attend Phys: Antoine Gutierrez Discharge: Date of : 75 Report #: [id number] THIS REPORT FOR: //name// 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 : 1975 Requested By: Belle Gordon Order Number: [id number] MD: Claus Mcmahan Measurements Intervals [place] Rate: 61 P: 46 GA: 136 QRS: 68 QRSD: 96 T: -55 QT: 421 QTc: 424 Interpretive Statements Sinus rhythm Probable RVH w/ secondary repol abnormality Compared to ECG 10/17/2016 07:21:03 Atrial abnormality no longer present Prolonged QT interval no longer present Electronically Signed On 10-22-2016 13:19:21 CDT by Claus Mcmahan [email or web address] <ELECTRONICALLY SIGNED> By: Claus Mcmahan MD 10/22/16 1319 0528 0528 Claus Mcmahan MD /EPI
--- NOTE | ~2016-10-16 | TEE ---
[facility] [place] [place] [address] TRANSESOPHAGEAL ECHOCARDIOGRAM Name: DEBBIE CAMPO Room #: 237-P [facility] IN ..#: [id number] Admission: 10/16/16 Attend Phys: Wesley Bates Discharge: Date of : 75 Date of Service: 10/18/16 1006 Report #: [id number] THIS REPORT FOR: //name// APPROVED REPORT Study performed: 10/18/2016 07:01:07 EXAM: Comprehensive 2D, Doppler, and color-flow Echocardiogram Patient Location: [facility] Room #: 9 Status: routine Other Information Study Quality: Excellent Indications Mitral Valve Disease Echo Enhancing Agent Indication: Rule out Shunt Agent(s) / Amount(s) Used: Agitated Saline 7 cc Procedure After obtaining informed consent, patient underwent transesophageal echo in the [employer]. Type of Sedation : Conscious Sedation Sedation was administered by Lisa Tafoya RN. Sedation start time: 812 Case end Time: 832 Sedation was achieved intravenously with: Versed (1.5 mg) Fentanyl (50 mcg) Transesophageal probe was inserted and advanced into esophagus without difficulty by Chris Goetz MD. Echo enhancement indication: R/O Septal defect. Echo enhancement agent administered: Agitated Saline The MONO was performed without complications. Throughout the procedure, the blood pressure, pulse oximetry, cardiac rhythm, and rate were monitored. The patient tolerated the procedure without adverse effects. Recovery from conscious sedation was uneventful and vital signs were stable. Left Ventricle The left ventricle is normal size. There is normal LV segmental wall motion. There is normal left ventricular wall thickness. The left [facility] [address] [place] [address] TRANSESOPHAGEAL ECHOCARDIOGRAM Name: JAHAIRADEBBIE A Room #: 237-P [facility] IN [facility]#: [id number] Admission: 10/16/16 Attend Phys: Wesley Bates Discharge: Date of : 75 Date of Service: 10/18/16 1006 Report #: [id number] ventricular systolic function is normal. The left ventricular ejection fraction is within the normal range. LVEF 60%. Right Ventricle The right ventricle is normal size. The right ventricular systolic function is normal. Atria Left atrium is dilated. The right atrium size is normal. Aortic Valve The aortic valve is normal in structure. No aortic regurgitation is present. There is no aortic valvular stenosis. Mitral Valve The mitral valve is normal in structure. Moderate to severe mitral regurgitation There is a mass on the anterior mitral leaflet consistent with, but not diagnostic of vegetation. Tricuspid Valve The tricuspid valve is normal in structure. There is no tricuspid valve stenosis. Mild tricuspid regurgitation. Pulmonic Valve The pulmonary valve is normal in structure. Trace pulmonic regurgitation. Great Vessels The aortic root is normal in size. Pericardium There is no pericardial effusion. <Conclusion> The left ventricular systolic function is normal. Normal wall motion. EF 65% Left atrium is dilated. No masses or clots in left atrium or appendage. No shunting by contrast bubble injection The aortic valve is normal in structure. No aortic valvular stenosis or insufficiency. Nodular 0.5cm diameter ovoid mass on anterior mitral leaflet with associated severe, eccentric mitral insufficiency The tricuspid valve is normal in structure. Mild tricuspid [facility] [address] [place] [address] TRANSESOPHAGEAL ECHOCARDIOGRAM Name: DEBBIE CAMPO Room #: 237-P [facility] IN ..#: [id number] Admission: 10/16/16 Attend Phys: Wesley Bates Discharge: Date of : 75 Date of Service: 10/18/16 1006 Report #: [id number] regurgitation. There is no pericardial effusion. <ELECTRONICALLY SIGNED> By: Chris Goetz MD, [facility] 10/18/16 100 05 05 Chris Goetz MD, [facility] /INF
--- NOTE | ~2016-10-16 | CATHLAB ---
[facility] [address] [place] [address] INVASIVE PROCEDURE REPORT Name: DEBBIE CAMPO Room #: 237-P ADM IN .R.#: [id number] Admission: 10/16/16 Attend Phys: Wesley Bates Discharge: Date of : 75 Date of Service: 10/18/16 1014 Report #: [id number] THIS REPORT FOR: //name// APPROVED REPORT Patient Details Patient Status: In-Patient Room #: The patient is a 41 year-old female Event Personnel Angel Cruz RN RN, Nii Fenton, Gianna Littlejohn, Chris Goetz Assistant Manager Retail Procedures Performed Art Access - R femoral artery* Left Heart Cath w/or w/o Coronaries [id number] C Hemostasis w/ Mynx 79979 Initial Mod Sed Same Phys/QHP Gr5y 631096 Indication CHF Current Status: Yes , Murmur Procedure Narrative The patient was brought electively to the Cardiac Catheterization Laboratory and was prepped and draped in a sterile manner. The Right Groin^ was infiltrated with 1% Lidocaine subcutaneous anesthesia. A PINNACLE 6FR Sheath #[id number] sheath was inserted into the RFA^. Coronary angiography was performed using coronary diagnostic catheters. The right coronary system was accessed and visualized with a JR 4 catheter. The left coronary system was accessed and visualized with a JL 4 catheter. The left ventricle was accessed and visualized with a Pigtail catheter. Left ventricular/Aortic Valve gradient assessed . Left ventriculogram was performed in 30 degree projection. Pre-demployment femoral angiogram was performed . Closure device was deployed with a 6 Fr Mynx. The patient tolerated the procedure well and there were no complications associated with the procedure. There was no hematoma. Intraoperative Conscious Sedation Sedation start time: 0742 Case end Time: 0758 Versed 1 mg Fluoro Time: 1.60 minutes Dose: DAP 2857.92 cGycm2 324 mGy Contrast Type and Amount: Visipaque 85 ml [facility] [address] [place] [address] INVASIVE PROCEDURE REPORT Name: DEBBIE CAMPO Annette Room #: 237-P [facility] IN [facility].#: [id number] Admission: 10/16/16 Attend Phys: Wesley Bates Discharge: Date of : 75 Date of Service: 10/18/16 1014 Report #: [id number] Hemodynamics The aortic pressure is 166/92 mmHg with a mean of 130 mmHg. The left ventricular pressure is 181/5 mmHg with a mean of mmHg. The left ventricular end diastolic pressure is 31 mmHg. There was no gradient across the aortic valve upon pullback. Pullback from the left ventricle to the aorta revealed no gradient across the aortic valve. Conclusion Ventriculography: Ventriculography demonstrated normal global and regional left ventricular systolic function. EF 65% Severe mitral insufficiency was present (4+ a 4+ scale). SELECTIVE CORONARY ANGIOGRAPHY 1. Left main: Angiographically normal 2. Left anterior descending: Large vessel that extended to the distal inferior wall Moderate 40-50% proximal LAD stenosis, otherwise the LAD and its branches were normal 3. Circumflex: The circumflex was angiographically normal and comprised of 2 marginal branches 4. Right coronary artery: Anatomically dominant and normal. <ELECTRONICALLY SIGNED> By: Chris Goetz MD, [facility] 10/18/16 1014 1014 1014 Chris Goetz MD, [facility] /INF
--- NOTE | ~2016-10-16 | O ---
[facility] [place] [address] OPERATIVE REPORT Name: DEBBIE CAMPO Room #: 240-P ADM IN M.R.#: [id number] Admission: 10/16/16 Attend Phys: Antoine Gutierrez Discharge: Date of : 75 Report #: [id number] THIS REPORT FOR: //name// CC: Davon Goetz MD [facility] FRANKO ROBLES MD DATE OF SERVICE: 10/21/2016 PREOPERATIVE DIAGNOSES: Severe mitral insufficiency, anterior mitral leaflet nodule. POSTOPERATIVE DIAGNOSES: Severe mitral insufficiency, anterior mitral leaflet nodule. OPERATIVE PROCEDURE PERFORMED: 1. Mitral valve repair with 28 mm Physio II annuloplasty ring. 2. Debridement of anterior mitral leaflet nodule. SURGEON: Franko Robles M.D. ENVIRONMENTAL PLANNING ENGINEER: SHAMAR Alston. ANESTHESIA: General. OPERATIVE INDICATIONS: The patient is a 41-year-old female who has a known history of lupus. She has had a complex history recently with a prolonged hospital stay at the [facility] and has recently developed renal failure requiring hemodialysis. The patient was discharged from [facility] to a chcf unit. She subsequently has had symptoms consistent with congestive heart failure and has required more aggressive dialysis. Cardiac evaluation has demonstrated evidence of severe mitral insufficiency with no significant coronary artery obstructive disease. The patient was brought to the operating room now for mitral valve repair, possible replacement. Preoperative MONO has demonstrated evidence of a small nodule on the anterior mitral leaflet that did not appear to be consistent with a vegetation. There was a regurgitant jet that was posteriorly directed. OPERATIVE SUMMARY: The patient was brought into the operating room and placed on the OR table in the supine position. After anesthesia was induced via the general endotracheal route with a single lumen endotracheal tube and monitoring lines were then positioned, the patient was prepped and draped in sterile fashion with chlorhexidine. A median sternotomy incision was made. It was noted that we were off midline due to the patient's left side. We placed a sternal retractor. We attempted to open the pericardium, but we found the [facility] [address] [place] [address] OPERATIVE REPORT Name: DEBBIE CAMPO Room #: 240-P [facility] IN M.R.#: [id number] Admission: 10/16/16 Attend Phys: Antoine Gutierrez Discharge: Date of : 75 Report #: [id number] parietal pericardium to be densely adhesed to the heart. We dissected it carefully encountering multiple areas of calcifications, which were densely adherent to the heart at the site. Once we had mobilized the heart off of the pericardium adequately, we then gave heparin and placed a cannula in the ascending aorta. We then placed a dual stage cannula in the right atrium, directed down towards the inferior vena cava and then a 28-Welsh cannula in the superior vena cava. An antegrade cardioplegic cannula was positioned and cardiopulmonary bypass was begun. A retrograde cardioplegic cannula was positioned and under low flow conditions, the aorta was cross clamped, the heart was arrested with cold antegrade cardioplegia approximately 1 liter followed by cold retrograde cardioplegia probably approximately 500 mL. Diastolic arrest was achieved and maintained throughout this operation with intermittent doses of cold antegrade and retrograde cardioplegia as well as topical ice slush. We first mobilized the right atrium off the left atrium and made a left atriotomy incision. We extended this, both craniad and caudad. We placed a mitral retractor and exposed the mitral valve. We found the left atrial cavity to be relatively small in size. Visualization was difficult, but adequate. Inspecting the mitral valve, we found a small nodular density at the apex of the anterior leaflet. This did not appear to be vegetative or infective in nature, but was somewhat calcified. It was densely adherent to the leaflet and we it too with a little difficulty. The nodule came out in pieces and was sent to pathology for cultures and sensitivities. Next, noting no other abnormalities of the valve structurally, we then sized the valve and felt that a 28 mm ring would be appropriate. We placed 2-0 Ethibond sutures in the mitral annulus. These were 2-0 Ethibond nonpledgeted. They were brought up through the sewing rim of a Physio II mitral annuloplasty ring and the ring was seated and the sutures were securely tied. We then tested the valve by injecting saline into the left ventricle. We found minimal leakage if any. We then closed the atriotomy in a single layer with running 4-0 Prolene suture. The patient was placed in steep Trendelenburg and de-airing maneuvers were performed to the left ventricular apex with an 18 gauge needle while holding blood in the heart and ventilating the lungs. This was performed while giving a retrograde warm cardioplegia and then antegrade warm cardioplegia. Under low flow conditions, the aortic crossclamp was released and similar de-airing maneuvers were performed again as described above. The patient was placed back in the supine position. The patient was rewarmed to 37 degree centigrade. We gave 3 successive doses of calcium and a single dose of magnesium all the way at 3-5 minute intervals. After a suitable period of reperfusion, the lungs were reinflated. The patient was weaned from cardiopulmonary bypass on Primacor infusion. Protamine was given to reverse the heparin. At this point, we looked around and found evidence of bleeding from the left atriotomy closure line. We attempted to place some sutures; however, it was clear that this was not going to be easily accomplished. Then we gave 27,000 units of heparin, replaced the atrial cannula in the right atrium. Both atrial cannulas had previously been removed. We reestablished cardiopulmonary bypass and with the heart empty we [facility] [email or web address] [address] OPERATIVE REPORT Name: PAULINEEUGENEDEBBIE A Room #: 240-P [facility] IN [facility].#: [id number] Admission: 10/16/16 Attend Phys: Antoine Gutierrez Discharge: Date of : 75 Report #: [id number] were able to lift the heart posteriorly and identified the bleeding site posteriorly. We placed three 4-0 Prolene Ethibond sutures at this site and we were able to successfully control hemorrhage from the left atrial cavity. BioGlue was used to augment the suture line as well. We then placed the heart back in its anatomic position and weaned the patient from cardiopulmonary bypass with the assistance of a Primacor infusion as well as epinephrine and norepinephrine. Protamine was administered. Decannulation was then effected. Once satisfactory hemostasis was achieved, we placed two 32-Welsh chest tubes anterior mediastinum bringing them out through separate stab incisions. The sternum was closed with #7 wire utilizing a Robicsek weave. The fascia and subcutaneous and skin were closed in multiple layers with absorbable suture. The procedure was completed; the patient was taken to the Surgical Intensive Care Unit in stable condition. Cardiopulmonary bypass time and cross clamp times are not available to me, actually cardiopulmonary bypass time was 153 minutes, cross clamp time 100 minutes. It should be noted that there was significant difficulty in performing this case especially with the presence of multiple adhesions to all surfaces of the heart. <ELECTRONICALLY SIGNED> By: Franko Robles MD 10/22/16 0748 1611 1934 Franko Robles MD /nt
--- NOTE | ~2016-10-16 | HC ---
[facility] [place] [address] CONSULTATION Name: PAULINEEUGENEDEBBIE Annette Room #: 212-P ADM IN M.R.#: [id number] Admission: 10/16/16 Attend Phys: Antoine Gutierrez Discharge: Date of : 75 Report #: [id number] THIS REPORT FOR: //name// CC: Davon Guy DATE OF SERVICE: 10/16/2016 ICU Critical Care Renal Consultation REASON FOR CONSULTATION: Respiratory distress in this patient with end-stage renal disease. HISTORY OF PRESENT ILLNESS: This 41-year-old female has a very long and complicated medical history. She is well known to us from repeated prior hospitalizations. She was in fact just discharged from [facility] to [facility] less than 24 hours ago. She presents again in acute respiratory distress with diffuse pulmonary infiltrates, hypoxia, and dependency on BiPAP. PAST MEDICAL HISTORY: Remarkable for longstanding systemic lupus erythematosus with multiple complications thereof. She has developed end-stage renal disease and has been maintained on dialysis for several months. She has had repeated episodes of acute respiratory distress. Past medical history is otherwise remarkable for cervical stenosis status post surgical intervention. She has known bipolar illness. She has a history of autoimmune hemolytic anemia complicating her systemic lupus erythematosus. She has a history of prior DVT with IVC filter. The remainder of the family history, personal and social history, and review of systems are not obtainable from this patient in respiratory distress at this time. PHYSICAL EXAMINATION: GENERAL: Reveals a well-developed, acutely ill female who is in acute respiratory distress, on BiPAP. VITAL SIGNS: Blood pressure 118/93, respirations 26, pulse 121, and temperature 100.2 degrees. SKIN: Warm and dry. There is no gross clubbing, cyanosis, or edema present. HEENT: The head is normocephalic and atraumatic. There is a BiPAP mask in place. NECK: The neck veins reveal minimal distention at 30 degrees. PULMONARY: Examination reveals diffuse crackles and wheezes heard. CARDIOVASCULAR: Examination reveals a regular rate and rhythm with heart sounds difficult to appreciate due to respiratory distress. ABDOMEN: Soft and nontender without palpable mass or organomegaly. [address] [address] CONSULTATION Name: DEBBIE CAMPO Room #: 212-P ADM IN [facility].#: [id number] Admission: 10/16/16 Attend Phys: Antoine Gutierrez Discharge: Date of : 75 Report #: [id number] NEUROLOGIC: Examination reveals the patient to be responsive and alert. LABORATORY STUDIES: Available at this time include sodium 128, potassium 5.4, chloride 92, CO2 23, BUN 28, creatinine 3.4, and glucose 227. White blood cell count 30,100, hemoglobin 9.2, hematocrit 28.5, and platelet count 289,000. Arterial blood gases: pH 7.36, pCO2 39, pO2 88.2, lactate 3.98, FiO2 100%. ASSESSMENT: 1. Chest x-ray reveals diffuse pulmonary infiltrates consistent with pulmonary edema. She is hypoxic on 100% BiPAP respiratory support. She will require emergent hemodialysis with ultrafiltration. 2. Recurrent pulmonary edema in this patient known to abuse fluids, but recently watching her fluid intake much better. Further evaluation as to the etiology of her pulmonary edema will be necessary. 3. Systemic lupus erythematosus. 4. History of autoimmune hemolytic anemia. PLAN: I will coordinate emergent hemodialysis for ultrafiltration and she will likely require dialysis again tomorrow to reestablish euvolemia and improve her respiratory status. Please see orders. Critical care time 45 minutes. <ELECTRONICALLY SIGNED> By: John Simental MD 10/20/16 1020 1236 1535 John Simental MD /nt
[~2016-10-16 03:16] MED LIST: AMLODIPINE BESYL5 M1 PO; ARANESP100 MCG/1 IJ; AUGMENTIN 500-1 EACH PO; BACTRIM DS TAB1 EACH; BACTRIM DS TAB1 EACH PO; CALMOSEPTINE O3.5 GM TOP; CARVEDILOL12.5 MG PO; COUMADIN 4 MG TA4 M1 PO; DUONEB 2.5-0.5 M3 ML; DUONEB 2.5-0.5 M3 ML INH; HYDROCODON-ACE1 EAC7 PO; HYDROXYCHLOROQ200 M1; LEVEMIR FL100 UNIT/2 SUBQ; MELATONIN5 M4; NORVASC2.5 M1; ONDANSETRON HCL4 M2; OXYCONTIN10 M1 PO; PAIN & FEVER500 MG PO; PREDNISONE 5 MG5 MG; PROTONIX 20 MG20 MG; PROTONIX40 M4 PO; SENEXON-S TABL1 EACH; VITAMIN B-1100 M1 PO; [UNRECOGNIZED DRUG - SUPPLY]
[2016-10-16 03:42] LABS: HEMATOCRIT 28.5 % (37.0-47.0); HEMOGLOBIN 9.2 gm/dL (12.0-15.0); MCH 28.2 pg (26.0-34.0); MCHC 32.4 g/dL (28.0-37.0); MCV 87.1 fL (80.0-100.0); PLATELET COUNT 289 thou/uL (150-400); RBC 3.27 mil/uL (4.20-5.00); RDW 17.3 % (10.5-14.5); WBC 30.1 thou/uL (4.0-11.0)
[2016-10-16 03:46] LABS: ABG SAMPLE TYPE ARTERIAL; BE(vivo) -3.2 mmol/L (-2 to +3); HCO3 21.9 mmol/L (22.0-26.0); O2(CT) 14.1 mL/dL (15.0-23.0); O2Hb 94.8 % (92.0-98.0); PCO2 39.2 mmHg (35.0-45.0); PO2 88.2 mmHg (80.0-100.0); pH 7.365 (7.360-7.450); sO2 96.5 % (92.0-98.0); tCO2 23.1 mmol/L (24.0-30.0)
[2016-10-16 03:47] LABS: ABG COMMENT BIPAP 14/8; LACTATE 3.98 mmol/L (0.5-2.0); Pressure Support 6 cm H20; STICK SITE R.RADIAL
[2016-10-16 03:52] LABS: MANUAL DIFF YES
[2016-10-16 03:56] LABS: CALCIUM 8.9 mg/dL (8.5-10.1); CREATININE 3.4 mg/dL (0.6-1.0); POTASSIUM 5.4 mmol/L (3.5-5.1)
[2016-10-16 04:08] LABS: TROPONIN-I 0.06 ng/mL (<0.04-0.07)
[2016-10-16 04:09] LABS: APTT 33.5 Seconds (24.5-32.8); INR 1.6; PROTIME 16.5 Seconds (9.3-11.4)
[2016-10-16 04:48] LABS: ABSOLUTE NEUTROPHILS 26.2 thou/uL (1.4-8.2); ANISOCYTOSIS 1+; TOTAL CELL COUNT 100
[2016-10-17] VITALS (23 sets, daily range): BP systolic 110–157; BP diastolic 71–107
[2016-10-17 05:13] LABS: HEMATOCRIT 24.5 % (37.0-47.0); HEMOGLOBIN 8.4 gm/dL (12.0-15.0); MCH 28.9 pg (26.0-34.0); MCHC 34.2 g/dL (28.0-37.0); MCV 84.5 fL (80.0-100.0); RBC 2.89 mil/uL (4.20-5.00); RDW 17.1 % (10.5-14.5)
[2016-10-17 05:14] LABS: ABG SAMPLE TYPE ARTERIAL; BE(vivo) 1.9 mmol/L (-2 to +3); HCO3 25.4 mmol/L (22.0-26.0); LACTATE 1.15 mmol/L (0.5-2.0); O2(CT) 15.5 mL/dL (15.0-23.0); O2Hb 97.7 % (92.0-98.0); PCO2 35.4 mmHg (35.0-45.0); PO2 123.2 mmHg (80.0-100.0); STICK SITE R.BRACHIAL; pH 7.473 (7.360-7.450); sO2 98.7 % (92.0-98.0); tCO2 26.4 mmol/L (24.0-30.0)
[2016-10-17 05:22] LABS: MANUAL DIFF YES
[2016-10-17 05:23] LABS: INR 1.7; PROTIME 17.7 Seconds (9.3-11.4)
[2016-10-17 05:25] LABS: WBC 7.4 thou/uL (4.0-11.0)
[2016-10-17 05:48] LABS: ALBUMIN 2.8 g/dL (3.4-5.0); CALCIUM 8.9 mg/dL (8.5-10.1); CREATININE 2.5 mg/dL (0.6-1.0); POTASSIUM 4.3 mmol/L (3.5-5.1); TOTAL BILIRUBIN 0.7 mg/dL (<0.1-1.0); TOTAL PROTEIN 5.7 g/dL (6.4-8.2)
[2016-10-17 07:55] LABS: ABSOLUTE NEUTROPHILS 6.6 thou/uL (1.4-8.2); ANISOCYTOSIS 1+; HYPOCHROMASIA 1+; TOTAL CELL COUNT 100
[2016-10-17 07:56] LABS: PLATELET COUNT 186 thou/uL (150-400)
[2016-10-18] VITALS (43 sets, daily range): BP systolic 118–161; BP diastolic 72–111
[2016-10-18 04:07] LABS: ALBUMIN 2.9 g/dL (3.4-5.0); CREATININE 4.1 mg/dL (0.6-1.0); PHOSPHORUS 6.9 mg/dL (2.5-4.9); POTASSIUM 4.8 mmol/L (3.5-5.1)
[2016-10-18 04:10] LABS: HEMATOCRIT 24.7 % (37.0-47.0); HEMOGLOBIN 8.4 gm/dL (12.0-15.0); MCH 28.8 pg (26.0-34.0); MCHC 34.1 g/dL (28.0-37.0); MCV 84.5 fL (80.0-100.0); RBC 2.92 mil/uL (4.20-5.00); RDW 16.4 % (10.5-14.5); WBC 6.7 thou/uL (4.0-11.0)
[2016-10-18 14:45] LABS: INR 1.6; PROTIME 16.7 Seconds (9.3-11.4)
[2016-10-19] VITALS (35 sets, daily range): BP systolic 118–165; BP diastolic 73–117
[2016-10-19 04:40] LABS: HEMATOCRIT 24.7 % (37.0-47.0); HEMOGLOBIN 8.2 gm/dL (12.0-15.0); MCH 28.5 pg (26.0-34.0); MCHC 33.4 g/dL (28.0-37.0); MCV 85.3 fL (80.0-100.0); RBC 2.89 mil/uL (4.20-5.00); RDW 16.4 % (10.5-14.5); WBC 6.9 thou/uL (4.0-11.0)
[2016-10-19 04:51] LABS: CALCIUM 8.8 mg/dL (8.5-10.1); PHOSPHORUS 3.9 mg/dL (2.5-4.9); POTASSIUM 4.2 mmol/L (3.5-5.1)
[2016-10-19 04:54] LABS: CREATININE 2.2 mg/dL (0.6-1.0)
[2016-10-19 14:28] LABS: INR 1.5; PROTIME 15.6 Seconds (9.3-11.4)
[2016-10-20 04:15] VITALS: BP 152/95
[2016-10-20 04:44] LABS: HEMATOCRIT 29.4 % (37.0-47.0); HEMOGLOBIN 9.7 gm/dL (12.0-15.0); MCH 28.1 pg (26.0-34.0); MCHC 32.9 g/dL (28.0-37.0); MCV 85.5 fL (80.0-100.0); RBC 3.44 mil/uL (4.20-5.00); RDW 16.1 % (10.5-14.5); WBC 8.4 thou/uL (4.0-11.0)
[2016-10-20 04:58] LABS: ALBUMIN 3.7 g/dL (3.4-5.0); CALCIUM 9.5 mg/dL (8.5-10.1); CREATININE 2.5 mg/dL (0.6-1.0); PHOSPHORUS 4.2 mg/dL (2.5-4.9); POTASSIUM 4.7 mmol/L (3.5-5.1)
[2016-10-20 07:33] VITALS: BP 152/98
[2016-10-20 14:50] LABS: INR 1.2; PROTIME 12.8 Seconds (9.3-11.4)
[2016-10-20 16:14] VITALS: BP 144/97
[2016-10-20 17:48] VITALS: BP 132/97
[2016-10-20 17:49] VITALS: BP 150/97
[2016-10-20 21:47] VITALS: BP 132/92
[2016-10-21 00:52] VITALS: BP 140/86
[2016-10-21 05:41] LABS: INR 1.2; PROTIME 12.8 Seconds (9.3-11.4)
[2016-10-21 06:15] VITALS: BP 151/100
[2016-10-21 13:47] LABS: HEMATOCRIT 23.4 % (37.0-47.0); HEMOGLOBIN 7.8 gm/dL (12.0-15.0); MCH 28.6 pg (26.0-34.0); MCHC 33.2 g/dL (28.0-37.0); MCV 86.3 fL (80.0-100.0); RBC 2.71 mil/uL (4.20-5.00); RDW 17.2 % (10.5-14.5); WBC 14.2 thou/uL (4.0-11.0)
[2016-10-21 14:02] LABS: APTT 33.3 Seconds (24.5-32.8); PROTIME 21.4 Seconds (9.3-11.4)
[2016-10-21 14:03] LABS: FIBRINOGEN 76.3 mg/dL (210-360)
[2016-10-21 14:04] LABS: INR 2.1
[2016-10-21 14:26] LABS: POC BE -1 mmol/L (-2.0 to +3.0); POC CA IONIZED 4.5 mg/dL (4.5-5.3); POC FiO2 100 %; POC GLUCOSE 179 mg/dL (70-99); POC HCO3 25.5 mmol/L (22.0-26.0); POC HEMOGLOBIN 6.8 g/dL (12.0-15.0); POC POTASSIUM 4.8 mmol/L (3.5-5.1); POC SODIUM 126 mmol/L (136-145); POC pCO2 52.4 mmHg (35.0-45.0); POC pH 7.294 (7.360-7.450)
[2016-10-21 14:26] LABS: POC BE 2 mmol/L (-2.0 to +3.0); POC CA IONIZED 4.5 mg/dL (4.5-5.3); POC FiO2 100 %; POC GLUCOSE 210 mg/dL (70-99); POC HCO3 25.6 mmol/L (22.0-26.0); POC HEMOGLOBIN 6.1 g/dL (12.0-15.0); POC POTASSIUM 4.3 mmol/L (3.5-5.1); POC SODIUM 124 mmol/L (136-145); POC pCO2 34.4 mmHg (35.0-45.0); POC pH 7.479 (7.360-7.450)
[2016-10-21 14:26] LABS: POC BE 0 mmol/L (-2.0 to +3.0); POC CA IONIZED 4.4 mg/dL (4.5-5.3); POC FiO2 75 %; POC GLUCOSE 160 mg/dL (70-99); POC HEMOGLOBIN 7.1 g/dL (12.0-15.0); POC POTASSIUM 4.8 mmol/L (3.5-5.1); POC SODIUM 125 mmol/L (136-145); POC pH 7.404 (7.360-7.450)
[2016-10-21 14:26] LABS: POC BE -1 mmol/L (-2.0 to +3.0); POC CA IONIZED 5.7 mg/dL (4.5-5.3); POC FiO2 100 %; POC GLUCOSE 174 mg/dL (70-99); POC HCO3 24.5 mmol/L (22.0-26.0); POC HEMOGLOBIN 10.2 g/dL (12.0-15.0); POC POTASSIUM 4.9 mmol/L (3.5-5.1); POC SODIUM 130 mmol/L (136-145); POC pCO2 41.1 mmHg (35.0-45.0); POC pH 7.383 (7.360-7.450)
[2016-10-21 14:26] LABS: POC BE -3 mmol/L (-2.0 to +3.0); POC CA IONIZED 6.8 mg/dL (4.5-5.3); POC FiO2 80 %; POC GLUCOSE 142 mg/dL (70-99); POC HCO3 22.9 mmol/L (22.0-26.0); POC HEMOGLOBIN 7.1 g/dL (12.0-15.0); POC POTASSIUM 5.3 mmol/L (3.5-5.1); POC SODIUM 126 mmol/L (136-145); POC pCO2 45.2 mmHg (35.0-45.0); POC pH 7.312 (7.360-7.450)
[2016-10-21 14:26] LABS: POC BE -4 mmol/L (-2.0 to +3.0); POC CA IONIZED 4.4 mg/dL (4.5-5.3); POC FiO2 100 %; POC GLUCOSE 179 mg/dL (70-99); POC HCO3 21.9 mmol/L (22.0-26.0); POC HEMOGLOBIN 6.5 g/dL (12.0-15.0); POC POTASSIUM 4.1 mmol/L (3.5-5.1); POC SODIUM 124 mmol/L (136-145); POC pCO2 40.7 mmHg (35.0-45.0); POC pH 7.338 (7.360-7.450)
[2016-10-21 14:26] LABS: POC BE -5 mmol/L (-2.0 to +3.0); POC CA IONIZED 6.7 mg/dL (4.5-5.3); POC FiO2 100 %; POC GLUCOSE 140 mg/dL (70-99); POC HCO3 20.6 mmol/L (22.0-26.0); POC HEMOGLOBIN 6.5 g/dL (12.0-15.0); POC POTASSIUM 5.1 mmol/L (3.5-5.1); POC SODIUM 129 mmol/L (136-145); POC pCO2 38.5 mmHg (35.0-45.0); POC pH 7.336 (7.360-7.450)
[2016-10-21 14:26] LABS: POC BE 3 mmol/L (-2.0 to +3.0); POC CA IONIZED 4.7 mg/dL (4.5-5.3); POC FiO2 100 %; POC GLUCOSE 178 mg/dL (70-99); POC HEMOGLOBIN 7.5 g/dL (12.0-15.0); POC POTASSIUM 4.7 mmol/L (3.5-5.1); POC SODIUM 124 mmol/L (136-145); POC pCO2 37.7 mmHg (35.0-45.0); POC pH 7.463 (7.360-7.450)
[2016-10-21 14:26] LABS: POC BE 5 mmol/L (-2.0 to +3.0); POC CA IONIZED 5.7 mg/dL (4.5-5.3); POC FiO2 100 %; POC GLUCOSE 149 mg/dL (70-99); POC HCO3 28.8 mmol/L (22.0-26.0); POC HEMOGLOBIN 6.8 g/dL (12.0-15.0); POC POTASSIUM 4.8 mmol/L (3.5-5.1); POC SODIUM 134 mmol/L (136-145); POC pCO2 38.6 mmHg (35.0-45.0)
[2016-10-21 14:26] LABS: POC BE -3 mmol/L (-2.0 to +3.0); POC CA IONIZED 4.1 mg/dL (4.5-5.3); POC FiO2 80 %; POC GLUCOSE 143 mg/dL (70-99); POC HCO3 22.3 mmol/L (22.0-26.0); POC HEMOGLOBIN 7.1 g/dL (12.0-15.0); POC POTASSIUM 4.9 mmol/L (3.5-5.1); POC SODIUM 126 mmol/L (136-145); POC pCO2 37.2 mmHg (35.0-45.0); POC pH 7.386 (7.360-7.450)
[2016-10-21 15:18] LABS: ALBUMIN 3.4 g/dL (3.4-5.0); CREATININE 2.6 mg/dL (0.6-1.0); MAGNESIUM 2.5 mg/dL (1.8-2.4); PHOSPHORUS 5.7 mg/dL (2.5-4.9); POTASSIUM 4.2 mmol/L (3.5-5.1)
[2016-10-21 15:19] LABS: CALCIUM 11.6 mg/dL (8.5-10.1)
[2016-10-21 15:27] LABS: ABG SAMPLE TYPE ARTERIAL; BE(vivo) -7.4 mmol/L (-2 to +3); HCO3 18.8 mmol/L (22.0-26.0); O2(CT) 18.2 mL/dL (15.0-23.0); O2Hb 97.8 % (92.0-98.0); PCO2 40.8 mmHg (35.0-45.0); PO2 257.7 mmHg (80.0-100.0); sO2 99.5 % (92.0-98.0); tCO2 20.1 mmol/L (24.0-30.0)
[2016-10-21 15:28] LABS: STICK SITE ALINE; TIDAL VOLUME 500 ml; pH 7.282 (7.360-7.450)
[2016-10-21 16:01] LABS: ABG SAMPLE TYPE ARTERIAL; BE(vivo) -3.1 mmol/L (-2 to +3); LACTATE 2.35 mmol/L (0.5-2.0); O2(CT) 17.7 mL/dL (15.0-23.0); O2Hb 98.1 % (92.0-98.0); PCO2 39.6 mmHg (35.0-45.0); PO2 205.8 mmHg (80.0-100.0); pH 7.362 (7.360-7.450); sO2 99.4 % (92.0-98.0); tCO2 23.2 mmol/L (24.0-30.0)
[2016-10-21 16:03] LABS: ABG COMMENT CMV; STICK SITE ALINE; TIDAL VOLUME 500 ml
[2016-10-21 16:14] LABS: HEMATOCRIT 37.9 % (37.0-47.0); MCH 28.7 pg (26.0-34.0); MCHC 33.3 g/dL (28.0-37.0); MCV 86.2 fL (80.0-100.0); RBC 4.4 mil/uL (4.20-5.00); RDW 15.7 % (10.5-14.5); WBC 26.3 thou/uL (4.0-11.0)
[2016-10-21 16:15] LABS: HEMOGLOBIN 12.6 gm/dL (12.0-15.0)
[2016-10-21 18:56] LABS: HEMATOCRIT 33.5 % (37.0-47.0); HEMOGLOBIN 11.2 gm/dL (12.0-15.0); MCH 28.8 pg (26.0-34.0); MCHC 33.5 g/dL (28.0-37.0); MCV 86.1 fL (80.0-100.0); RBC 3.89 mil/uL (4.20-5.00); WBC 19.3 thou/uL (4.0-11.0)
[2016-10-21 18:57] LABS: ABG SAMPLE TYPE ARTERIAL; BE(vivo) -3.1 mmol/L (-2 to +3); HCO3 21.5 mmol/L (22.0-26.0); LACTATE 2.19 mmol/L (0.5-2.0); O2(CT) 16.4 mL/dL (15.0-23.0); O2Hb 97.5 % (92.0-98.0); PCO2 37.1 mmHg (35.0-45.0); PO2 170.9 mmHg (80.0-100.0); pH 7.381 (7.360-7.450); sO2 99.1 % (92.0-98.0); tCO2 22.6 mmol/L (24.0-30.0)
[2016-10-21 18:58] LABS: FIO2 40 %; TIDAL VOLUME 500 ml
[2016-10-21 19:01] LABS: CALCIUM 11.3 mg/dL (8.5-10.1); CREATININE 2.8 mg/dL (0.6-1.0); POTASSIUM 4.4 mmol/L (3.5-5.1)
[2016-10-21 22:14] LABS: ABG SAMPLE TYPE ARTERIAL; BE(vivo) -4.4 mmol/L (-2 to +3); FIO2 30 %; HCO3 20.7 mmol/L (22.0-26.0); LACTATE 1.77 mmol/L (0.5-2.0); O2(CT) 16.5 mL/dL (15.0-23.0); O2Hb 96.7 % (92.0-98.0); PO2 118.5 mmHg (80.0-100.0); Pressure Support 5 cm H20; pH 7.354 (7.360-7.450); sO2 98.2 % (92.0-98.0); tCO2 21.9 mmol/L (24.0-30.0)
[2016-10-22] VITALS (21 sets, daily range): BP systolic 116–161; BP diastolic 76–104
[2016-10-22 00:06] LABS: HEP B SURFACE Ab(ANTI-HBS Non Reactive (())
[2016-10-22 05:10] LABS: ABG SAMPLE TYPE ARTERIAL; BE(vivo) -5.2 mmol/L (-2 to +3); HCO3 19.8 mmol/L (22.0-26.0); LACTATE 1.57 mmol/L (0.5-2.0); O2(CT) 16.6 mL/dL (15.0-23.0); O2Hb 96.2 % (92.0-98.0); PCO2 36.5 mmHg (35.0-45.0); PO2 106.5 mmHg (80.0-100.0); STICK SITE LINE; pH 7.352 (7.360-7.450); sO2 97.7 % (92.0-98.0); tCO2 20.9 mmol/L (24.0-30.0)
[2016-10-22 06:13] LABS: HEMOGLOBIN 11.4 gm/dL (12.0-15.0); MCH 28.7 pg (26.0-34.0); MCHC 33.5 g/dL (28.0-37.0); MCV 85.8 fL (80.0-100.0); RBC 3.97 mil/uL (4.20-5.00); RDW 16.6 % (10.5-14.5); WBC 19.3 thou/uL (4.0-11.0)
[2016-10-22 06:25] LABS: INR 1.2; PROTIME 12.1 Seconds (9.3-11.4)
[2016-10-22 06:32] LABS: CREATININE 3.5 mg/dL (0.6-1.0)
[2016-10-23] VITALS (33 sets, daily range): BP systolic 73–173; BP diastolic 51–108
[2016-10-23 04:59] LABS: HEMATOCRIT 33.6 % (37.0-47.0); HEMOGLOBIN 11.3 gm/dL (12.0-15.0); MCHC 33.6 g/dL (28.0-37.0); MCV 86.4 fL (80.0-100.0); RBC 3.89 mil/uL (4.20-5.00); RDW 16.4 % (10.5-14.5); WBC 18.2 thou/uL (4.0-11.0)
[2016-10-23 05:11] LABS: ALBUMIN 3.4 g/dL (3.4-5.0); CALCIUM 9.4 mg/dL (8.5-10.1); CREATININE 3.7 mg/dL (0.6-1.0); INR 1.1; MAGNESIUM 2.3 mg/dL (1.8-2.4); PHOSPHORUS 7.9 mg/dL (2.5-4.9); PROTIME 11.8 Seconds (9.3-11.4)
[2016-10-23 05:12] LABS: POTASSIUM 5.4 mmol/L (3.5-5.1)
[2016-10-24 03:12] LABS: HEMOGLOBIN 10.4 gm/dL (12.0-15.0); MCH 28.9 pg (26.0-34.0); MCHC 33.7 g/dL (28.0-37.0); MCV 85.8 fL (80.0-100.0); RBC 3.61 mil/uL (4.20-5.00); RDW 16.2 % (10.5-14.5); WBC 12.9 thou/uL (4.0-11.0)
[2016-10-24 03:24] LABS: ALBUMIN 3.2 g/dL (3.4-5.0); CALCIUM 8.9 mg/dL (8.5-10.1); PHOSPHORUS 5.4 mg/dL (2.5-4.9); POTASSIUM 5.1 mmol/L (3.5-5.1)
[2016-10-24 03:26] LABS: CREATININE 2.7 mg/dL (0.6-1.0)
[2016-10-24 03:54] VITALS: BP 154/103
[2016-10-24 08:00] VITALS: BP 145/102
[2016-10-24 12:00] VITALS: BP 154/100
[2016-10-24 14:27] LABS: INR 1.1; PROTIME 11.9 Seconds (9.3-11.4)
[2016-10-24 16:00] VITALS: BP 156/97
[2016-10-24 19:15] VITALS: BP 146/99
[2016-10-25 03:52] VITALS: BP 151/105
[2016-10-25 04:53] LABS: HEMOGLOBIN 10.6 gm/dL (12.0-15.0); WBC 10.5 thou/uL (4.0-11.0)
[2016-10-25 04:56] LABS: HEMATOCRIT 30.6 % (37.0-47.0); MCH 29.5 pg (26.0-34.0); MCHC 34.6 g/dL (28.0-37.0); MCV 85.1 fL (80.0-100.0); RBC 3.59 mil/uL (4.20-5.00); RDW 15.9 % (10.5-14.5)
[2016-10-25 04:57] LABS: INR 1.2; PROTIME 12.1 Seconds (9.3-11.4)
[2016-10-25 05:03] LABS: ALBUMIN 3.3 g/dL (3.4-5.0); PHOSPHORUS 7.5 mg/dL (2.5-4.9); POTASSIUM 5.6 mmol/L (3.5-5.1)
[2016-10-25 05:05] LABS: CREATININE 3.9 mg/dL (0.6-1.0)
[2016-10-25 12:00] VITALS: BP 164/90
[2016-10-25 15:45] LABS: INR 1.2; PROTIME 12.6 Seconds (9.3-11.4)
[2016-10-25 16:00] VITALS: BP 150/101
[2016-10-25 19:18] VITALS: BP 131/93
[2016-10-26 04:30] VITALS: BP 164/115
[2016-10-26 05:37] LABS: HEMATOCRIT 30.1 % (37.0-47.0); HEMOGLOBIN 10.2 gm/dL (12.0-15.0); MCH 29.1 pg (26.0-34.0); MCV 85.5 fL (80.0-100.0); RBC 3.52 mil/uL (4.20-5.00); RDW 16.2 % (10.5-14.5); WBC 15.1 thou/uL (4.0-11.0)
[2016-10-26 05:47] LABS: INR 1.4; PROTIME 14.6 Seconds (9.3-11.4)
[2016-10-26 05:51] LABS: ALBUMIN 3.3 g/dL (3.4-5.0); CALCIUM 8.7 mg/dL (8.5-10.1); PHOSPHORUS 5.1 mg/dL (2.5-4.9); POTASSIUM 4.3 mmol/L (3.5-5.1)
[2016-10-26 05:53] LABS: CREATININE 2.6 mg/dL (0.6-1.0)
[2016-10-26 08:09] VITALS: BP 164/111
[2016-10-26 14:30] LABS: INR 1.7; PROTIME 17.4 Seconds (9.3-11.4)
[2016-10-26 16:45] VITALS: BP 146/86
[2016-10-26 20:04] VITALS: BP 138/95
[2016-10-27 04:23] VITALS: BP 151/100
[2016-10-27 05:26] LABS: INR 2.2; PROTIME 23.2 Seconds (9.3-11.4)
[2016-10-27 05:28] LABS: ALBUMIN 3.4 g/dL (3.4-5.0); CALCIUM 8.7 mg/dL (8.5-10.1); CREATININE 2.2 mg/dL (0.6-1.0); PHOSPHORUS 4.2 mg/dL (2.5-4.9)
[2016-10-27 07:24] VITALS: BP 158/99
[2016-10-27 11:49] VITALS: BP 152/100
[2016-10-27 16:11] VITALS: BP 155/80
[2016-10-27 20:06] VITALS: BP 151/93
[2016-10-28 04:12] VITALS: BP 156/101
[2016-10-28 04:18] LABS: PROTIME 21.1 Seconds (9.3-11.4)
[2016-10-28] MEDS ORDERED: CARVEDILOL12.5 MG PO (07:48)
[2016-10-28] MEDS ORDERED: HYDROCODON-ACE1 EAC7 PO (07:49)
[2016-10-28] MEDS ORDERED: PEPCID20 MG PO (07:49)
[2016-10-28] MEDS ORDERED: PREDNISONE 20 M20 M1 PO (07:50)
[2016-10-28 12:04] VITALS: BP 153/98
== END 2016-10-28 15:20 | DRG 853 ==
LOC: ER 03:16 → ICU 04:03 → EROBS 04:03 → ICU 04:40 → 2N 10-19 21:43 → TBA 10-21 07:32 → ICU 10-21 15:07 → 2N 10-23 16:54
PROVIDERS: Emergency Medicine; Hospitalist; Internal Medicine; Internal Medicine Geriatric Medicine; Internal Medicine Nephrology; Internal Medicine Pulmonary Disease; Nurse Practitioner; Student in an Organized Health Care Education/Training Program; Thoracic Surgery (Cardiothoracic Vascular Surgery)
PROC: 5A09457 Assistance with Respiratory Ventilation, 24-96 Consecutive Hours, Continuous Positive Airway Pressure (ICD-10-PCS; principal; 2016-10-16)
PROC: B2151ZZ Fluoroscopy of Left Heart using Low Osmolar Contrast (ICD-10-PCS; 2016-10-18)
PROC: 4A023N7 Measurement of Cardiac Sampling and Pressure, Left Heart, Percutaneous Approach (ICD-10-PCS; 2016-10-18)
PROC: B2111ZZ Fluoroscopy of Multiple Coronary Arteries using Low Osmolar Contrast (ICD-10-PCS; 2016-10-18)
PROC: 30233L1 Transfusion of Nonautologous Fresh Plasma into Peripheral Vein, Percutaneous Approach (ICD-10-PCS; 2016-10-20)
PROC: 30233K1 Transfusion of Nonautologous Frozen Plasma into Peripheral Vein, Percutaneous Approach (ICD-10-PCS; 2016-10-20)
PROC: 5A1221Z Performance of Cardiac Output, Continuous (ICD-10-PCS; 2016-10-21)
PROC: 30233N1 Transfusion of Nonautologous Red Blood Cells into Peripheral Vein, Percutaneous Approach (ICD-10-PCS; 2016-10-21)
PROC: 02UG0JZ Supplement Mitral Valve with Synthetic Substitute, Open Approach (ICD-10-PCS; 2016-10-21)
PROC: 30233R1 Transfusion of Nonautologous Platelets into Peripheral Vein, Percutaneous Approach (ICD-10-PCS; 2016-10-21)
PROC: 5A1D60Z (ICD-10-PCS; 2016-10-22)
DX: A41.89 Other specified sepsis (principal); G93.40 Encephalopathy, unspecified; N18.6 End stage renal disease; J96.01 Acute respiratory failure with hypoxia; I50.31 Acute diastolic (congestive) heart failure; J15.0 Pneumonia due to Klebsiella pneumoniae; I33.0 Acute and subacute infective endocarditis; N17.9 Acute kidney failure, unspecified; E87.2 Acidosis; I13.2 Hypertensive heart and chronic kidney disease with heart failure and with stage 5 chronic kidney disease, or end stage renal disease; E87.1 Hypo-osmolality and hyponatremia; J44.0 Chronic obstructive pulmonary disease with (acute) lower respiratory infection; I34.0 Nonrheumatic mitral (valve) insufficiency; R58 Hemorrhage, not elsewhere classified; M32.14 Glomerular disease in systemic lupus erythematosus; F31.9 Bipolar disorder, unspecified; M48.02 Spinal stenosis, cervical region; D63.1 Anemia in chronic kidney disease; E87.5 Hyperkalemia; I27.2 Other secondary pulmonary hypertension; E78.5 Hyperlipidemia, unspecified; D69.6 Thrombocytopenia, unspecified; E11.22 Type 2 diabetes mellitus with diabetic chronic kidney disease; I25.10 Atherosclerotic heart disease of native coronary artery without angina pectoris; Z86.718 Personal history of other venous thrombosis and embolism; Z99.2 Dependence on renal dialysis; Z88.6 Allergy status to analgesic agent; Z88.8 Allergy status to other drugs, medicaments and biological substances; Z79.899 Other long term (current) drug therapy; Z79.01 Long term (current) use of anticoagulants; Z87.01 Personal history of pneumonia (recurrent); Z90.710 Acquired absence of both cervix and uterus; Z88.1 Allergy status to other antibiotic agents; Z79.52 Long term (current) use of systemic steroids
CPT/HCPCS: 10078; 10081; 32100; 47000; 47001; 47002; 47297; 47335; 48888; 50010; 50011; 50318; 50409; 50456; 50497; 50953; 52131; 53327; 53622; 54118; 55022; 56524; 56525; 56526; 56527; 56528; 56531; 56534; 56639; 56660; 57093; 62110; 62950; 64029; 64031; 65002; 65003; 65020; 65043; 65090; 65120; 83006

== ENCOUNTER 2016-11-18 13:36 | Emergency (ER) | payer OTHER ==
[~2016-11-18] VITALS: Ht 167.6 cm; Wt 73.0 kg
--- NOTE | ~2016-11-18 | EKG ---
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: edenilson : 1975 Requested By: Russ Allison Order Number: [id number] MD: Chris Goetz Measurements Intervals [place] Rate: 77 P: 49 VT: 137 QRS: -4 QRSD: 89 T: 185 QT: 386 QTc: 437 Interpretive Statements Sinus rhythm Probable left atrial enlargement RSR' in V1 or V2, right VCD or RVH Abnormal T, consider ischemia, lateral leads Compared to ECG 10/22/2016 05:28:43 RSR' in V1 or V2 now present T-wave abnormality now present Electronically Signed On 11-20-2016 7:15:47 CDT by Chris Goetz [email or web address] <ELECTRONICALLY SIGNED> By: Chris Goetz MD, [facility] 11/20/16 0715 1412 1412 Chris Goetz MD, [facility] /EPI
[~2016-11-18 13:36] MED LIST changes: +PEPCID20 MG PO; +PREDNISONE 20 M20 M1 PO
[2016-11-18 14:44] LABS: HEMOGLOBIN 6.9 gm/dL (12.0-15.0); MCH 29.8 pg (26.0-34.0); PLATELET COUNT 71 thou/uL (150-400); WBC 9.2 thou/uL (4.0-11.0)
[2016-11-18 14:46] LABS: HEMATOCRIT 20.2 % (37.0-47.0); MCHC 34.3 g/dL (28.0-37.0); MCV 87.1 fL (80.0-100.0); RBC 2.31 mil/uL (4.20-5.00); RDW 18.8 % (10.5-14.5)
[2016-11-18 14:48] LABS: MANUAL DIFF YES
[2016-11-18 15:05] LABS: CREATININE 2.4 mg/dL (0.6-1.0); POTASSIUM 3.8 mmol/L (3.5-5.1)
[2016-11-18 15:06] LABS: ABSOLUTE NEUTROPHILS 7.9 thou/uL (1.4-8.2); ANISOCYTOSIS 1+; HYPOCHROMASIA 3+; INR 1.7; PLATELET ESTIMATE DECREASED; POLYCHROMASIA 1+; PROTIME 17.4 Seconds (9.3-11.4); TOTAL CELL COUNT 100
[2016-11-18 15:13] LABS: TROPONIN-I 0.04 ng/mL (<0.04-0.07)
== END 2016-11-18 19:39 | disposition home or self-care (01) ==
LOC: ER 13:36
PROVIDERS: Emergency Medicine
DX: R06.00 Dyspnea, unspecified (principal); D64.9 Anemia, unspecified; N18.6 End stage renal disease; M32.14 Glomerular disease in systemic lupus erythematosus; K21.9 Gastro-esophageal reflux disease without esophagitis; F31.9 Bipolar disorder, unspecified; M79.7 Fibromyalgia; Z86.718 Personal history of other venous thrombosis and embolism; Z99.2 Dependence on renal dialysis; Z88.1 Allergy status to other antibiotic agents; Z88.5 Allergy status to narcotic agent; Z87.891 Personal history of nicotine dependence

== ENCOUNTER 2016-12-03 05:49 | Inpatient (IN) | payer OTHER ==
[~2016-12-03] VITALS: Ht 167.6 cm; Wt 74.1 kg
--- NOTE | ~2016-12-03 | H ---
[facility] [place] [address] HISTORY AND PHYSICAL Name: DEBBIE CAMPO Room #: 452-P [facility] IN M.R.#: [id number] Admission: 12/03/16 Attend Phys: Nii Romero MD Discharge: Date of : 75 Report #: [id number] THIS REPORT FOR: //name// CC: Wesley Romero DATE OF SERVICE: 12/03/2016 CHIEF COMPLAINT: Shortness of breath. HISTORY OF PRESENT ILLNESS: The patient is a 41-year-old female sent to the emergency room from her pen[facility]entiary facility with shortness of breath. Overnight, her stats dropped into the 70s despite 15 liters nasal cannula high follow oxygen, ultimately they settled back into low 90s. She normally wears 4 liters of nasal cannula oxygen. She does have end-stage renal disease and was due for hemodialysis today on her usual Friday, , Friday schedule. She has had issues with recurrent pulmonary edema in the past. Ultimately, she was diagnosed with mitral regurgitation and underwent a valve repair about 6 weeks ago. She has been reasonably stable since that time. PAST MEDICAL HISTORY: Systemic lupus, end-stage renal disease, history of DVT, pulmonary edema, history of cervical fusion, bipolar disorder, anemia, inferior vena cava filter placement, hypertension, mitral valve disease with recent mitral valve repair. PAST SURGICAL HISTORY: She has had a tunneled catheter. FAMILY HISTORY: Noncontributory. SOCIAL HISTORY: She has been a previous smoker. No chronic alcohol use. She lives in a penitentiary facility. ALLERGIES: DEMEROL, MORPHINE, CIPRO. MEDICATIONS: Coreg, amlodipine, Coumadin, prednisone, Pepcid, hydrocodone. REVIEW OF SYSTEMS: She was alert on BiPAP, denying any chest pain, productive cough, fever, chills, nausea, vomiting, diarrhea, constipation, dysuria, syncope. OBJECTIVE: VITAL SIGNS: Temperature 36.6, pulse 77, respirations 20, blood pressure . GENERAL: She is awake and alert. She knows me and knows her surroundings. HEAD AND NECK: Unremarkable. LUNGS: Diminished breath sounds in the bases, clear anteriorly. HEART: Regular. [facility] [address] [place] [address] HISTORY AND PHYSICAL Name: DEBBIE CAMPO Room #: 452-P [facility] IN ..#: [id number] Admission: 12/03/16 Attend Phys: Nii Romero MD Discharge: Date of : 75 Report #: [id number] ABDOMEN: Soft, normoactive bowel sounds. EXTREMITIES: 1+ edema. NEUROLOGIC: Global strength 4/5 throughout. Chest x-ray reveals pulmonary edema. BNP was 12,000. ASSESSMENT: 1. Acute pulmonary edema. 2. End-stage renal disease. 3. Mitral valve disease with recent valve repair. 4. Chronic anticoagulation. 5. History of deep vein thrombosis. 6. History of lupus with pulmonary component. PLAN: She will be scheduled for dialysis today. has assessed her in the emergency room and I have reviewed his notes and if we get her turned around quickly and off BiPAP overnight with stability, she will return to her skilled facility and outpatient hemodialysis. <ELECTRONICALLY SIGNED> By: Nii Romero MD 12/03/16 1334 0921 0947 Nii Romero MD /nt
--- NOTE | ~2016-12-03 | EKG ---
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: : 1975 Requested By: Hector Acevedo Order Number: [id number] MD: Measurements Intervals [place] Rate: 76 P: 50 [place]: 130 QRS: -1 QRSD: 136 T: 188 QT: 397 QTc: 447 Interpretive Statements Sinus rhythm Nonspecific intraventricular conduction delay Abnormal T, consider ischemia, diffuse leads Compared to ECG 11/18/2016 14:12:13 Intraventricular conduction delay now present Right ventricular hypertrophy no longer present T-wave abnormality still present Possible ischemia still present [email or web address] By: [id number] Epiphany EpiphanyMD /EPI
--- NOTE | ~2016-12-03 | D ---
[facility] [place] [address] DISCHARGE SUMMARY Name: DEBBIE CAMPO Room #: 452-P [facility] IN M.R.#: [id number] Admission: 12/03/16 Attend Phys: Nii Romero MD Discharge: 12/04/16 Date of : 75 Report #: [id number] THIS REPORT FOR: //name// CC: Wesley Romero DATE OF SERVICE: 12/04/2016 FINAL DIAGNOSES: 1. Acute pulmonary edema. 2. End-stage renal disease. HOSPITAL COURSE: The patient was admitted with shortness of breath. She initially required BiPAP. She underwent emergent hemodialysis, although this was her scheduled outpatient hemodialysis stay. Chest x-ray revealed pulmonary edema and her BNP was 12,000. Dr. Womack spoke to her outpatient dialysis facility, there were concerns whether she was following dietary and fluid restrictions as there were reports of her requesting additional liquids and food from her . She tolerated dialysis without incident the rest her hospital stay. She was maintained on her oxygen via nasal cannula. DISPOSITION: She will transfer back to [facility] facility. She will continue all current medications, outpatient dialysis to resume, 1500 mL fluid restrictions with low sodium renal diet, physical and occupational therapy. <ELECTRONICALLY SIGNED> By: Nii Romero MD 12/04/16 1313 0824 7 Nii Romero MD /nt
--- NOTE | ~2016-12-03 | HC ---
[facility] [place] [address] CONSULTATION Name: DEBBIE CAMPO Annette Room #: 452-P [facility] IN M.R.#: [id number] Admission: 12/03/16 Attend Phys: Nii Romero MD Discharge: 12/04/16 Date of : 75 Report #: [id number] THIS REPORT FOR: //name// CC: Wesley Romero REASON FOR CONSULTATION: End-stage renal disease. REASON FOR PRESENTATION: Shortness of breath. HISTORY OF PRESENT ILLNESS: This is a 41-year-old who is well known to me. 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 She is also known to have DVT with thrombocytopenia, status post inferior vena cava filter. There is a possibility of anticardiolipin history. She is maintained on dialysis every Friday, and Friday. She dialyzes with an outpatient [facility]. She presented to the emergency room complaining of shortness of breath and was found to be in full-blown pulmonary edema. The patient has a very longstanding history of noncompliance with salt and fluid restrictions. I have managed her at the [facility] in the past with very successful uvolemic status with restriction of her fluid and salt. We are being consulted to manage her pulmonary edema during her hospital stay. Currently, she is maintained on CPAP and she is not able to provide me with the history; however, her history is well known to me. PAST MEDICAL HISTORY: 1. SLE. 2. End-stage renal disease. 3. DVT. 4. Pulmonary edema. 5. Status post cervical fusion. 6. Bipolar disorder. 7. Hemolytic anemia. 8. Status post inferior vena cava filter placement. 9. Hypertension. 10. ____ disease. PAST SURGICAL HISTORY: 1. Status post cervical fusion. 2. Right IJ tunneled catheter. MEDICATIONS: 1. Carvedilol. 2. Amlodipine. 3. Coumadin. 4. Prednisone. SOCIAL HISTORY: Significant for tobacco abuse. No drug or alcohol abuse. She [facility] [address] [place] [address] CONSULTATION Name: DEBBIE CAMPO Room #: 452-P [facility] IN M.R.#: [id number] Admission: 12/03/16 Attend Phys: Nii Romero MD Discharge: 12/04/16 Date of : 75 Report #: [id number] resides in a nursing facility. FAMILY HISTORY: Significant for hypertension. ALLERGIES: DEMEROL, MORPHINE, CIPRO. REVIEW OF SYSTEMS: The patient is currently on the CPAP and she is not able to provide me with the review of systems. PHYSICAL EXAMINATION: VITAL SIGNS: She is on BiPAP. Pulse rate is 77, respiratory rate is 18, blood pressure is 149/95. HEAD AND NECK: Significant jugular venous distention. CHEST: Bilateral crackles. CARDIOVASCULAR: Tachycardic with no rub. ABDOMEN: Soft, nontender. LOWER EXTREMITIES: +2 edema. LABORATORY DATA: Reviewed. INR 2.3. White blood cell count 15.7. Hemoglobin 7.9, platelets 96. Sodium 124. BUN 32, creatinine 2.7. Chest x-ray reviewed massive pulmonary edema. ASSESSMENT AND IMPRESSION: 1. Pulmonary edema due to noncompliance. 2. End-stage renal disease. 3. Hyponatremia. 4. Anemia. 5. DVT in the past. 6. Hemolytic anemia. 7. Thrombocytopenia. 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 PLAN: 1. Emergent hemodialysis will be arranged with aggressive ultrafiltration. 2. Fluid and salt restrictions. 3. Resume her outpatient medications. 4. Therapeutic INR. 5. Non-chronic hemolytic anemia with thrombocytopenia. 6. Continue to employee counselor about her major noncompliance with fluid and salt restriction as apparent by her hyponatremia. <ELECTRONICALLY SIGNED> By: Blanco Womack MD 12/06/16 0800 0749 0841 Blanco Womack MD /nt
[2016-12-03] MEDS ORDERED: PREDNISONE 5 MG5 M1 PO (06:03)
[2016-12-03] MEDS ORDERED: SILVADENE20 GM TP (06:05)
[2016-12-03 06:08] LABS: HEMATOCRIT 23.9 % (37.0-47.0); HEMOGLOBIN 7.9 gm/dL (12.0-15.0); MCH 30.3 pg (26.0-34.0); MCHC 33.1 g/dL (28.0-37.0); MCV 91.6 fL (80.0-100.0); PLATELET COUNT 96 thou/uL (150-400); RDW 19.7 % (10.5-14.5); WBC 15.7 thou/uL (4.0-11.0)
[2016-12-03 06:09] LABS: MANUAL DIFF YES
[2016-12-03 06:13] LABS: ABG SAMPLE TYPE ARTERIAL; BE(vivo) 0.5 mmol/L (-2 to +3); HCO3 24.4 mmol/L (22.0-26.0); LACTATE 1.62 mmol/L (0.5-2.0); O2(CT) 12.2 mL/dL (15.0-23.0); PCO2 36.1 mmHg (35.0-45.0); PO2 109.5 mmHg (80.0-100.0); pH 7.448 (7.360-7.450); sO2 98.2 % (92.0-98.0); tCO2 25.5 mmol/L (24.0-30.0)
[2016-12-03 06:14] LABS: ABG COMMENT BIPAP 5 MIN; Pressure Support 8 cm H20; STICK SITE R.RADIAL
[2016-12-03 06:16] LABS: ANION GAP 11 mmol/L (7-16); BUN 32 mg/dL (7-18); CALCIUM 9.2 mg/dL (8.5-10.1); CHLORIDE 88 mmol/L (98-107); CO2 25 mmol/L (21-32); CREATININE 2.7 mg/dL (0.6-1.0); GLUCOSE 109 mg/dL (74-106); POTASSIUM 4.7 mmol/L (3.5-5.1); SODIUM 124 mmol/L (136-145)
[2016-12-03 06:22] LABS: APTT 44.3 Seconds (24.5-32.8); INR 2.3; PROTIME 23.2 Seconds (9.3-11.4)
[2016-12-03 06:33] LABS: ALBUMIN 3.1 g/dL (3.4-5.0); ALKALINE PHOSPHATASE 278 U/L (46-116); CK-MB MASS 4.4 ng/mL (<0.5-3.6); NT-PRO BRAIN NAT PEPTIDE 12864 pg/mL (<300); SGOT 18 U/L (15-37); SGPT 16 U/L (30-65); TOTAL PROTEIN 6.2 g/dL (6.4-8.2); TROPONIN-I < 0.04 ng/mL (<0.04-0.07)
[2016-12-03 07:57] LABS: ANISOCYTOSIS 2+; MICROCYTES 1+; PLATELET ESTIMATE SLIGHTLY DECREASED; TOTAL CELL COUNT 100
[2016-12-03 08:25] VITALS: BP 143/96
[2016-12-03 13:26] VITALS: BP 135/62
[2016-12-03 15:15] VITALS: BP 140/83
[2016-12-03 19:22] VITALS: BP 131/85
[2016-12-03 23:59] VITALS: BP 132/87
[2016-12-04 03:12] VITALS: BP 146/99
[2016-12-04 07:48] VITALS: BP 157/107
[2016-12-04 11:37] VITALS: BP 144/98
== END 2016-12-04 12:59 | DRG 189 ==
LOC: ER 05:49 → 4W 07:28 → EROBS 07:28 → 4W 08:33
PROVIDERS: Emergency Medicine
PROC: 5A09357 Assistance with Respiratory Ventilation, Less than 24 Consecutive Hours, Continuous Positive Airway Pressure (ICD-10-PCS; principal; 2016-12-03)
PROC: 5A1D00Z (ICD-10-PCS; principal; 2016-12-03)
DX: J96.20 Acute and chronic respiratory failure, unspecified whether with hypoxia or hypercapnia (principal); N18.6 End stage renal disease; J81.0 Acute pulmonary edema; E87.1 Hypo-osmolality and hyponatremia; I12.0 Hypertensive chronic kidney disease with stage 5 chronic kidney disease or end stage renal disease; D58.9 Hereditary hemolytic anemia, unspecified; F31.9 Bipolar disorder, unspecified; I05.9 Rheumatic mitral valve disease, unspecified; K21.9 Gastro-esophageal reflux disease without esophagitis; M32.14 Glomerular disease in systemic lupus erythematosus; D72.829 Elevated white blood cell count, unspecified; D69.6 Thrombocytopenia, unspecified; Z79.899 Other long term (current) drug therapy; Z91.19 Patient's noncompliance with other medical treatment and regimen; Z90.710 Acquired absence of both cervix and uterus; Z88.6 Allergy status to analgesic agent; Z88.8 Allergy status to other drugs, medicaments and biological substances; Z99.81 Dependence on supplemental oxygen; Z86.718 Personal history of other venous thrombosis and embolism; Z79.01 Long term (current) use of anticoagulants; Z99.2 Dependence on renal dialysis; Z87.891 Personal history of nicotine dependence; Z82.49 Family history of ischemic heart disease and other diseases of the circulatory system
CPT/HCPCS: 10040; 10045; 32100

== ENCOUNTER 2016-12-11 06:19 | Inpatient (IN) | payer OTHER ==
[2016-12-11] VITALS (54 sets, daily range): BP systolic 88–159; BP diastolic 49–147
[~2016-12-11] VITALS: Ht 167.6 cm; Wt 64.7 kg
--- NOTE | ~2016-12-11 | TEE ---
[facility] [place] [address] TRANSESOPHAGEAL ECHOCARDIOGRAM Name: DEBBIE CAMPO Room #: 423-1 ADM IN M.R.#: [id number] Admission: 12/11/16 Attend Phys: Antoine Toro Discharge: Date of : 75 Date of Service: 12/24/16 0905 Report #: [id number] THIS REPORT FOR: //name// APPROVED REPORT Study performed: 12/24/2016 07:24:54 EXAM: Comprehensive 2D, Doppler, and color-flow Echocardiogram Patient Location: [facility] Room #: 423 Status: routine BSA: 1.71 HR: 80 bpm BP: 124/79 mmHg Other Information Study Quality: Adequate Indications Mitral valve repair, bacteremia. Procedure After obtaining informed consent, patient underwent transesophageal echo in the [facility]. Type of Sedation : Conscious Sedation Sedation was administered by RN. Sedation was achieved intravenously with: Versed (3) Fentanyl (37.5) Transesophageal probe was inserted and advanced into esophagus without difficulty by Chris Goetz MD. The MONO was performed without complications. Throughout the procedure, the blood pressure, pulse oximetry, cardiac rhythm, and rate were monitored. The patient tolerated the procedure without adverse effects. Recovery from conscious sedation was uneventful and vital signs were stable. Left Ventricle The left ventricle is normal size. There is normal LV segmental wall motion. There is normal left ventricular wall thickness. Left ventricular systolic function is normal. No left ventricle thrombus noted on this study. LVEF is 60%. Right Ventricle [facility] [address] [place] [address] TRANSESOPHAGEAL ECHOCARDIOGRAM Name: DEBBIE CAMPO Room #: 423-1 ADM IN M.R.#: [id number] Admission: 12/11/16 Attend Phys: Antoine Toro Discharge: Date of : 75 Date of Service: 12/24/16 0905 Report #: [id number] The right ventricle is normal size. The right ventricular systolic function is normal. Atria The left atrium size is normal. The right atrium size is normal. Aortic Valve The aortic valve is normal in structure. No aortic regurgitation is present. There is no aortic valvular stenosis. Mitral Valve Mitral valve repair (10/16/16). 28mm Physio II annuloplasty ring. Mean pressure gradient through the valve is 6.6mmHg. Moderate mitral regurgitation. No valvular vegetations noted. Tricuspid Valve The tricuspid valve is normal in structure. Mild tricuspid regurgitation. Pulmonic Valve The pulmonary valve is normal in structure. Trace pulmonic regurgitation. Pericardium There is no pericardial effusion. <Conclusion> Left ventricular systolic function is normal. There is normal LV segmental wall motion. LVEF 60%. The aortic valve is normal in structure. No aortic valvular stenosis or insufficiency. Mitral valve repair (10/16/16). 28mm Physio II annuloplasty ring. Mean pressure gradient through the valve is 6.6mmHg. Moderate mitral regurgitation. Post-repair changes Normal tricuspid valve. Mild tricuspid insufficiency There is no pericardial effusion. <ELECTRONICALLY SIGNED> By: Chirs Goetz MD, [facility] 12/24/16904 4 4 Chris Goetz MD, FACC /INF
--- NOTE | ~2016-12-11 | D ---
[facility] [place] [address] DISCHARGE SUMMARY Name: DEBBIE CAMPO Room #: 423-1 [facility] IN M.R.#: [id number] Admission: 12/11/16 Attend Phys: Nii Romero MD Discharge: 12/26/16 Date of : 75 Report #: [id number] THIS REPORT FOR: //name// CC: Nii Hensley FINAL DIAGNOSES: 1. Pulmonary edema. 2. End-stage renal disease. 3. Methicillin-resistant Staphylococcus aureus bacteremia. 4. Lupus nephritis. 5. Anemia of chronic disease. PROCEDURES: 1. Hemodialysis catheter exchange. 2. Bedside hemodialysis. 3. MONO. HOSPITAL COURSE: The patient was admitted with shortness of breath. Ultimately, she was found with pulmonary edema. Also, cultures were obtained, which revealed MRSA bacteremia. Her hemodialysis catheter was exchanged. MONO was performed, which showed normal functioning post mitral valve repair with no signs of vegetation. Her ejection fraction was normal. High resolution CT of the chest showed maybe some pulmonary fibrosis or more likely interstitial edema. Steroids were temporally increased to try to help with her respiratory status. Ultimately, the feeling amongst the medical team was that the issue was pulmonary edema related to nonadherent to dietary restrictions. She and her along with her sister were educated about fluid and sodium restrictions. Once they complied with following only with available meal spicer from the hospital, she had no further pulmonary edemas for a week. PHYSICAL EXAMINATION: GENERAL: On the day of discharge, she was awake and alert. VITAL SIGNS: Her O2 sats are actually in the high 90s on 2 liters nasal cannula. LUNGS: Clear. HEART: Regular. ABDOMEN: Soft, normoactive bowel sounds. EXTREMITIES: No edema. DISPOSITION: She is being transferred to [facility] LT[facility] facility. Renal 1200 [facility] [address] [place] [address] DISCHARGE SUMMARY Name: DEBBIE CAMPO Room #: 423-1 DIS IN M.R.#: [id number] Admission: 12/11/16 Attend Phys: Nii Romero MD Discharge: 12/26/16 Date of : 75 Report #: [id number] fluid restriction diet. PT, OT and activity as tolerated and the care of Dr. Guy. <ELECTRONICALLY SIGNED> By: Nii Romero MD 01/07/17 0923 1236 1331 Nii Romero MD /nt
--- NOTE | ~2016-12-11 | HC ---
[facility] [place] [address] CONSULTATION Name: DEBBIE CAMPO Room #: 423-1 ADM IN M.R.#: [id number] Admission: 12/11/16 Attend Phys: Nii Romero MD Discharge: Date of : 75 Report #: [id number] THIS REPORT FOR: //name// CC: Nii Hensley DATE OF SERVICE: 12/11/2016 REASON FOR CONSULTATION: End-stage renal disease and pulmonary edema. HISTORY OF PRESENT ILLNESS: The patient is well known to our service. We have taken care of her many times with end-stage renal disease developed as complication of lupus nephritis. She has been on dialysis for at least several months. We have managed her at [facility]. She currently is at [facility]. She has had recurrent history of volume overloaded fluid and dietary noncompliance and shortness of breath. She was dialyzed here 1 week ago in a similar situation, was in the hospital a couple of days and discharged and has had multiple similar episodes. She now presents with orthopnea, shortness of breath, chest x-ray revealing volume overload and she is admitted for acute dialysis to ICU. PAST MEDICAL HISTORY: She has systemic lupus, lupus nephritis, end-stage renal disease, history of hypercoagulable state, DVT, inferior vena cava filter, history of bipolar disorder, hypertension as well. PAST SURGICAL HISTORY: Includes cervical fusion. MEDICATIONS: At time of transfer include furosemide 40 mg daily, carvedilol 25 mg b.i.d., amlodipine 10 mg daily, famotidine 20 mg daily, prednisone 15 mg daily, vitamin B1, MiraLax, Humalog sliding scale, Colace. SOCIAL HISTORY: Significant for being a smoker, although I believe not currently. FAMILY HISTORY: Positive for hypertension. ALLERGIES: Reportedly DEMEROL, MORPHINE and CIPRO. REVIEW OF SYSTEMS: GENERAL: She has been doing reasonably well until she got short of breath with orthopnea today. SKIN: Denies any current rashes. EYES: Her vision is okay. ENT: No mouth sores or ulcers, swallows okay. ENDOCRINE: Positive for the diabetes. RESPIRATORY: Quite short of breath with orthopnea. [facility] [address] [place] [address] CONSULTATION Name: DEBBIE CAMPO Room #: 423-1 [facility] IN ..#: [id number] Admission: 12/11/16 Attend Phys: Nii Romero MD Discharge: Date of : 75 Report #: [id number] CARDIAC: Denying any chest pain, but she does have swelling in her legs. GASTROINTESTINAL: Appetite has been okay. GENITOURINARY: Still maintains a good urinary stream and output. NEUROLOGIC: Denies stroke or seizures. PSYCHIATRIC: She has a history of bipolar disorder. I do not see that she is on a specific treatment for that at this time. PHYSICAL EXAMINATION: GENERAL: This is a somewhat dyspneic woman with a nonrebreather mask. SKIN: Slightly cyanotic. SKELETAL: Somewhat overweight. HEENT: Extraocular movements are full. No scleral icterus. Hearing and vision intact. Mucous membranes moist. NECK: Supple. CHEST: Shows crackles bilaterally. HEART: Regular. ABDOMEN: Soft and nontender. EXTREMITIES: Showed 2+ peripheral edema. NEUROLOGIC: Moves all extremities. Nothing focal. LABORATORY DATA: The hemoglobin is only 7.6, white count 13.3, platelets 154. Sodium 127, potassium 4.2, chloride 88, bicarbonate 28, creatinine 2.8, BUN 41. ASSESSMENT AND PLAN: 1. Pulmonary edema. She is quite volume overloaded. This is not unusual in this patient. We will do aggressive ultrafiltration. She obviously will need several days in a row to get her fluid off. 2. Hyponatremia. She is a chronic p.o. fluid abuser, compulsive water drinker, and does not stick with her fluid restriction. 3. Systemic lupus with nephritis and end-stage renal disease. 4. Hypercoagulable state with history of deep venous thrombosis. 5. History of psychiatric disorder. 6. Hypertension, on appropriate medications. 7. Anemia. We will check her iron levels. She will need some Procrit. <ELECTRONICALLY SIGNED> By: Paulo Lepe MD 12/17/16 1154 1139 1234 Paulo Lepe MD /nt
--- NOTE | ~2016-12-11 | EKG ---
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: KYM : 1975 Requested By: Russ Allison Order Number: [id number] MD: Chris Goetz Measurements Intervals [place] Rate: 78 P: 57 UT: 133 QRS: 6 QRSD: 119 T: 210 QT: 379 QTc: 432 Interpretive Statements Sinus rhythm Abnormal T, consider ischemia, diffuse leads Compared to ECG 12/03/2016 06:59:26 No significant change was found Electronically Signed On 12-11-2016 8:01:30 CDT by Chris Goetz [email or web address] <ELECTRONICALLY SIGNED> By: Chirs Goetz MD, [facility] 12/11/16 0801 0645 Chris Goetz MD, FACC /EPI
--- NOTE | ~2016-12-11 | HC ---
[facility] [place] [address] CONSULTATION Name: DEBBIE CAMPO Room #: 432-P [facility] IN M.R.#: [id number] Admission: 12/11/16 Attend Phys: Nii Romero MD Discharge: Date of : 75 Report #: [id number] THIS REPORT FOR: //name// CC: Nii Hensley DATE OF CONSULTATION: 12/14/2016. ATTENDING PHYSICIAN: Dr. Nii Romero. REASON FOR CONSULTATION: Fever. HISTORY OF PRESENT ILLNESS: A 41-year-old white woman developed temperature of 103.1 today and ID opinion is requested. The patient unable to give any information whatsoever, I obtained most of the information on this patient from review of old records, current H and P and discussion with the patient's mother. PAST MEDICAL HISTORY: Lupus erythematosus, lumbar spinal stenosis and end-stage renal disease on hemodialysis 3 times weekly, diabetes mellitus type 2, bipolar disorder, previous episode of DVT, previous episode of pulmonary edema. Hemolytic anemia. Hypertension. She has undergone previously cervical spine fusion, inferior vena cave filter placement. DRUG ALLERGIES: CIPRO, MEPERIDINE, MORPHINE, NICOTINE. SOCIAL HISTORY: . She lives with her and roommate in [place], [place], but lately had been residing at a rehabilitation place. CURRENT MEDICATIONS: Include Zosyn 2.25 grams IV every 8 hours, vancomycin 500 mg IV x 1, prednisone 50 mg daily, famotidine, multivitamin, furosemide, melatonin, carvedilol, warfarin 5 mg daily, Atrovent and albuterol inhalation treatments, p.r.n. hydrocodone, p.r.n. , intravenous infusion of iron sucrose, as well as dialysis almost on daily basis lately. REVIEW OF SYSTEMS: The patient complaining of back pain and she is insists to lying on the right lateral decubitus position. PHYSICAL EXAMINATION: GENERAL: Chronically ill-appearing, cushingoid looking woman. VITAL SIGNS: Temperature maximum 103.1, pulse 90, respirations 28 and blood pressure 123/79 and patient was mildly hypotensive on 12/12/2016, blood pressure in 94/54. HEENT: Cushingoid face. Pupils reactive. Mouth edentulous. NECK: Supple. LUNGS: Clear. HEART: S1, S2. No gallop. CHEST: Revealed median sternotomy from recent mitral valve placement by [facility] [address] [place] [address] CONSULTATION Name: DEBBIE CAMPO Room #: 432-P [facility] IN [facility]#: [id number] Admission: 12/11/16 Attend Phys: Nii Romero MD Discharge: Date of : 75 Report #: [id number] Meurer. ABDOMEN: Soft, no masses or megaly. PELVIC AND RECTAL: Deferred. EXTREMITIES: No clubbing, cyanosis. SKIN: Revealed multiple tattoos. NEUROLOGIC: Grossly within normal limits. LABORATORY DATA: Sodium 130, potassium 4.3, BUN 35, creatinine 3, glucose 113, albumin 2.9 yesterday. Protime 36.6, INR 3.6 today. WBC 17.8, hemoglobin 7.8, platelets has dropped to 81,000. The patient had been intermittently thrombocytopenic for a prolonged period of time. White blood cell count differential revealed 94% neutrophils. Hepatitis surface antigen and negative hepatitis, anti-hepatitis B surface negative. MRSA screen was negative previously. Fungal serology was negative in the past. ABGs on 12/11/2016 revealed pH 7.43, pCO2 of 40, pO2 of 89, bicarbonate 26.2. These set of gases is on 15 liters nonrebreather mask. RADIOLOGY EVALUATION: A chest x-ray yesterday revealed prominent heart median sternotomy from mitral valve repair. Good positioning of right internal jugular superior vena cava dialysis catheter. Improvement of the pulmonary infiltrates, congestive heart failure. ASSESSMENT: 1. Fever of undetermined source, rule out catheter sepsis. 2. Renal failure, on hemodialysis. 3. Spinal stenosis, chronic back pain. 4. Immunosuppressed host on prednisone. 5. Depression. SUGGESTIONS: Recommend ESR, CRP. Blood cultures already obtained. Continue Zosyn and give another dose [address] Romero thank you for requesting my suggestions in the care of your patient. <ELECTRONICALLY SIGNED> By: Geoff Mcmahan MD 12/14/16 1504 1243 1359 Geoff Mcmahan MD /nt
--- NOTE | ~2016-12-11 | 2DMMODE ---
[facility] [address] [place] [address] 2 D/M-MODE ECHOCARDIOGRAM Name: PAULINEEUGENEDEBBIE A Room #: 432-P ADM IN ..#: [id number] Admission: 12/11/16 Attend Phys: Antoine Toro Discharge: Date of : 75 Date of Service: 12/12/16 1119 Report #: [id number] THIS REPORT FOR: //name// APPROVED REPORT Study performed: 12/12/2016 06:59:51 EXAM: Comprehensive 2D, Doppler, and color-flow Echocardiogram Patient Location: Bedside Room #: 236 Status: routine BSA: 1.85 BP: 119/86 mmHg Other Information Study Quality: Technically Difficult Technically limited study due to inability to position patient, patient was receiving dialysis at the time of the echo. Paitent was unable to move and was limited in response. Indications Dyspnea Hypertension/HDD Echo Enhancing Agent Indication: Endocardial border delineation Agent(s) / Amount(s) Used: Optison 5 cc 2D Dimensions RVDd: 30.71 mm LVEF(%): 63.87 (>50%) IVSd: 10.52 (7-11mm) LVOT Diam: 20.24 (18-24mm) LVDd: 33.54 mm PWd: 11.36 (7-11mm) Ascending Ao: 24.93 (22-36mm) LVDs: 22.20 (25-40mm) Aortic Root: 26.98 mm IVC: 16.00 mm Wheat's LVEF: 63.87 % Volumes Left Atrial Volume (Systole) Single Plane 4CH: 22.45 mL Single Plane 2CH: 50.39 mL LA ESV Index: 20.00 mL/m2 Aortic Valve AoV Peak Pankaj.: 1.50 m/s [facility] [place] [place] [address] 2 D/M-MODE ECHOCARDIOGRAM Name: JAHAIRADEBBIE A Room #: 432-P [facility] IN M.R.#: [id number] Admission: 12/11/16 Attend Phys: Antoine Toro Discharge: Date of : 75 Date of Service: 12/12/16 1119 Report #: [id number] AO Peak Gr.: 9.01 mmHg LVOT Max P.49 mmHg LVOT Max V: 0.79 m/s RANJIT Vmax: 1.69 cm2 Mitral Valve MV Peak Gr.: 12.24 mmHg MV Mean Gr.: 4.20 mmHg MV Decel. Time: 329.71 ms MV Max Pankaj.: 1.75 m/s MV Mean Pankaj.: 0.93 m/s MV VTI: 522.12 mm MV PHT: 95.61 ms IVRT: 100.35 ms Pulmonary Valve PV Peak Pankaj.: 0.89 m/s PV Peak Gr.: 3.15 mmHg Pulmonary Vein P Vein S: 0.34 m/s P Vein A: 0.15 m/s P Vein D: 0.50 m/s P Vein A Dur.: 100.3 msec P Vein S/D Ratio: 0.68 Tricuspid Valve TR Peak Pankaj.: 2.98 m/s RAP Estimate: 5.00 mmHg TR Peak Gr.: 35.42 mmHg Left Ventricle The left ventricle is normal size. There is normal left ventricular wall thickness. The left ventricular systolic function is normal. The left ventricular ejection fraction is within the normal range. LVEF is 60%. Difficult to assess due to patient unable to valsalva and limited apical windows. Right Ventricle The right ventricle is normal size. The right ventricular systolic function is normal. Atria The left atrium size is normal. The right atrium size is normal. Aortic Valve The aortic valve is not well visualized. There is no aortic valvular stenosis. Mitral Valve [facility] [address] [place] [address] 2 D/M-MODE ECHOCARDIOGRAM Name: DEBBIE CAMPO Room #: 432-P [facility] IN [facility]#: [id number] Admission: 12/11/16 Attend Phys: Antoine Toro Discharge: Date of : 75 Date of Service: 12/12/16 1119 Report #: [id number] 28 mm Physio II mitral valve noted with a max pressure gradient of 12.24 mmHg and a mean pressure gradient of 4.2 mmHg. Limited view due to MVR masking however, mild mitral regurgitation was noted. Tricuspid Valve The tricuspid valve is normal in structure. There is mild to moderate tricuspid regurgitation. The right atrial pressure is estimated at 5 mmHg. PAP is estimated at 40 mmHg. Pulmonic Valve The pulmonary valve is normal in structure. Mild pulmonic regurgitation. Great Vessels The aortic root is normal in size. IVC is normal in size and collapses >50% with inspiration. <Conclusion> The left ventricle is normal size. LVEF is 60%. The aortic valve is not well visualized. There is no aortic valvular stenosis. 28 mm Physio II mitral valve noted with a max pressure gradient of 12.24 mmHg and a mean pressure gradient of 4.2 mmHg. Limited view due to MVR masking however, mild mitral regurgitation was noted. The tricuspid valve is normal in structure. There is mild to moderate tricuspid regurgitation. The right atrial pressure is estimated at 5 mmHg. PAP is estimated at 40 mmHg. The pulmonary valve is normal in structure. Mild pulmonic regurgitation. <ELECTRONICALLY SIGNED> By: Ramirez Lennon MD 12/12/16 1119 1119 1119 Ramirez Lennon MD /INF
--- NOTE | ~2016-12-11 | H ---
[facility] [place] [address] HISTORY AND PHYSICAL Name: DEBBIE CAMPO Room #: 236-P ADM IN M.R.#: [id number] Admission: 12/11/16 Attend Phys: Nii Romero MD Discharge: Date of : 75 Report #: [id number] THIS REPORT FOR: //name// CC: Nii Hensley DATE OF SERVICE: 12/11/2016 CHIEF COMPLAINT: Shortness of breath. HISTORY OF PRESENT ILLNESS: The patient is a 41-year-old female transferred from [facility] for evaluation of shortness of breath. She has a longstanding history of renal disease requiring hemodialysis, pulmonary sarcoid disease, and mitral valve disease. She has been in and out of the hospital in various care facilities for the better part of this calendar year. My understanding is that at other facility, she has required emergent hemodialysis in between her normal schedule sessions and would often present with acute pulmonary edema. In September of this year, she had extensive workup here and subsequently underwent a mitral valve repair. Please see those operative notes. It was felt at that time that the main source of her pulmonary edema symptoms related to severe mitral valve disease. However, since surgery, this is the second time she has been admitted here with acute pulmonary edema. My understanding from her is that [facility] her dialysis days shifted from Friday, , and Friday to Friday, Friday, and Friday and he reports that she received hemodialysis last Friday along with this Friday. She had been in the hospital setting with supervision, yet presents here with pulmonary edema. ER reports told me on the phone this morning that dialysis Friday removed 4 liters of fluid, but I do not have access to those records. PAST MEDICAL HISTORY: As above. PAST SURGICAL HISTORY: Please see previous notes. FAMILY HISTORY: Unknown. SOCIAL HISTORY: She is , previous smoking. ALLERGIES: MORPHINE and CIPRO. MEDICATIONS: I reviewed her list. REVIEW OF SYSTEMS: She is in ICU on a ventimask and really could not give any detail. She is on dialysis. PHYSICAL EXAMINATION: [facility] [address] [place] [address] HISTORY AND PHYSICAL Name: DEBBIE CAMPO Room #: 236-P [facility] IN ..#: [id number] Admission: 12/11/16 Attend Phys: Nii Romero MD Discharge: Date of : 75 Report #: [id number] VITAL SIGNS: Per the nursing note. GENERAL: She was arousable, but short of breath. LUNGS: Diminished. HEART: Regular. ABDOMEN: Soft, normoactive bowel sounds. EXTREMITIES: 2+ edema. ASSESSMENT: 1. Acute pulmonary edema. 2. End-stage renal disease. 3. Mitral valve disease with previous mitral valve repair approximately 2 months ago. 4. Chronic anticoagulation. 5. Pulmonary lupus. PLAN: She is receiving emergent dialysis in ICU. I will ask for echocardiogram to ensure valves and left ventricular function is stable post surgery. I spoke with Dr. Womack during her admission last week and he confirmed with the outpatient dialysis center that she was not compliant with her dietary and fluid restrictions, may be this is the major issue here . <ELECTRONICALLY SIGNED> By: Nii Romero MD 12/12/16 0858 1314 1414 Nii Romero MD /nt
--- NOTE | ~2016-12-11 | HC ---
[facility] [place] [address] CONSULTATION Name: DEBBIE CAMPO Room #: 423-1 ADM IN M.R.#: [id number] Admission: 12/11/16 Attend Phys: Nii Romero MD Discharge: Date of : 75 Report #: [id number] THIS REPORT FOR: //name// CC: Nii Hensley TYPE OF REPORT: Pulmonary consultation. PRIMARY CARE PHYSICIAN: Eleanor Hensley M.D. REFERRING PHYSICIAN: Nii Romero M.D. REASON FOR REFERRAL: Hypoxia. HISTORY OF PRESENT ILLNESS: The patient is a 41-year-old white female who was transferred from [facility] for dyspnea and hypoxia. She was felt to be volume overload. She has end-stage kidney disease. The patient was admitted for emergent dialysis. Since hospital stay, the patient had improvement, though remained hypoxic. For that reason, a pulmonary consultation was requested. The patient is not a good historian. She is quite sleepy as this moment. She keeps asking when is lunch. She has a long history of lupus. As a result, she has developed end-stage renal disease, undergoing hemodialysis. Review of the chest x-ray in the past has shown mild interstitial changes bilaterally along with pulmonary edema in the past. No prior CT chest. PAST MEDICAL HISTORY: As mentioned above, systemic lupus, lupus nephritis, end-stage renal disease, gastroesophageal reflux disease, cervical spinal stenosis, bipolar disorder, fibromyalgia, autoimmune hemolytic anemia, thrombocytopenia, past history of DVT status post IVC filter placement, prior heart surgery for mitral valve repair of severe mitral insufficiency and an anterior mitral leaflet nodule in September of 2016. PAST SURGICAL HISTORY: As mentioned above including hysterectomy and cervical spine fusion. ALLERGIES: To FLUOROQUINOLONE, MORPHINE and NICOTINE. CURRENT MEDICATIONS: List reviewed. FAMILY HISTORY: Noncontributory. [facility] [address] [place] [address] CONSULTATION Name: DEBBIE CAMPO Room #: 423-1 [facility]#: [id number] Admission: 12/11/16 Attend Phys: Nii Romero MD Discharge: Date of : 75 Report #: [id number] SOCIAL HISTORY: The patient has smoked in the past. Denies any alcohol use. REVIEW OF SYSTEMS: Deferred. PHYSICAL EXAMINATION: GENERAL: Not able to today awake to answer questions. VITAL SIGNS: Temperature is 97.5 degrees Fahrenheit, pulse is 72, respiratory rate is 18, blood pressure 138/91 mmHg and saturation 97%. HEENT: Normocephalic and atraumatic. NECK: Supple, without lymphadenopathy or thyromegaly. CHEST: Air movements are decreased, few scattered crackles. No wheezes. CARDIOVASCULAR: Normal S1 and S2. There are no murmurs or gallop. There is no JVD. There is no carotid bruit. Pulses are 2+/4+ bilaterally. ABDOMEN: Soft and nontender. No organomegaly or masses felt. GENITOURINARY: Deferred. RECTAL: Deferred. EXTREMITIES: There is no cyanosis or clubbing. Trace bilateral edema is noted. LABORATORY DATA: Portable chest x-ray shows mild interstitial changes bilaterally, cardiomegaly. Sodium 129, potassium 3.0, chloride 92, CO2 is 24, BUN is 36 and creatinine is 4.0. Albumin 2.8. WBC 17,900 from 12/14/2016, no evidence of bandemia and hemoglobin 7.6. Last INR 1.7 on December 19. Arterial blood gas earlier today revealed pH 7.50, pCO2 of 34, pO2 of 61 and FiO2 of 30%. IMPRESSION: 1. Hypoxia in this 41-year-old white female with long history of lupus. Previous chest x-ray shows interstitial infiltrates and pulmonary edema. Etiology likely related to recent pulmonary edema but cannot rule out a possibility of lupus pneumonitis. Pneumonia is felt to be less likely. Pulmonary embolus is also felt to be less likely as she has an inferior vena cava filter placed. 2. Systemic lupus with nephritis, end-stage renal disease, on hemodialysis. 3. Past history of deep venous thrombosis status post inferior vena cava filter placement. 4. Hypocoagulable state. 5. Bipolar disorder. 6. Hypertension. 7. Anemia. RECOMMENDATION: Continue O2, wean O2 for saturation 90%. We will proceed with a high-resolution CT chest. Overnight oximetry study review obtained. She may need [place] [address] CONSULTATION Name: DEBBIE CAMPO Room #: 423-1 ADM IN M.R.#: [id number] Admission: 12/11/16 Attend Phys: Nii Romero MD Discharge: Date of : 75 Report #: [id number] Thank you for this consultation. <ELECTRONICALLY SIGNED> By: Kris Mccann MD 12/23/16 [id number] Kris Mccann MD /nt
[~2016-12-11 06:19] MED LIST changes: +PREDNISONE 5 MG5 M1 PO; +SILVADENE20 GM TP
[2016-12-11 07:01] LABS: ABG SAMPLE TYPE ARTERIAL; BE(vivo) 1.8 mmol/L (-2 to +3); HCO3 26.2 mmol/L (22.0-26.0); LACTATE 0.98 mmol/L (0.5-2.0); O2(CT) 11.4 mL/dL (15.0-23.0); PCO2 40.1 mmHg (35.0-45.0); PO2 89.7 mmHg (80.0-100.0); STICK SITE L.BRACHIAL; pH 7.433 (7.360-7.450); sO2 97.1 % (92.0-98.0); tCO2 27.4 mmol/L (24.0-30.0)
[2016-12-11 07:02] LABS: ABG COMMENT ER MASK; VDS 15LPM TO NONREBRATHE cc
[2016-12-11 07:16] LABS: HEMATOCRIT 23.4 % (37.0-47.0); HEMOGLOBIN 7.6 gm/dL (12.0-15.0); MCH 29.5 pg (26.0-34.0); MCHC 32.6 g/dL (28.0-37.0); MCV 90.5 fL (80.0-100.0); PLATELET COUNT 154 thou/uL (150-400); RBC 2.58 mil/uL (4.20-5.00); RDW 16.6 % (10.5-14.5); WBC 13.3 thou/uL (4.0-11.0)
[2016-12-11] MEDS ORDERED: FUROSEMIDE 40 M40 M1 PO (07:17)
[2016-12-11] MEDS ORDERED: NORVASC10 MG PO (07:17)
[2016-12-11] MEDS ORDERED: COREG25 MG PO (07:17)
[2016-12-11] MEDS ORDERED: MIRALAX17 GM PO (07:18)
[2016-12-11 07:19] LABS: MANUAL DIFF YES
[2016-12-11] MEDS ORDERED: HUMALOG100 UNIT/1 SUBQ (07:19)
[2016-12-11] MEDS ORDERED: VENELEX OINTMEN60 GM TP (07:19)
[2016-12-11] MEDS ORDERED: COLACE100 MG PO (07:20)
[2016-12-11] MEDS ORDERED: CATAPRES0.2 MG PO (07:21)
[2016-12-11 07:23] LABS: ANION GAP 11 mmol/L (7-16); BUN 41 mg/dL (7-18); CALCIUM 8.9 mg/dL (8.5-10.1); CHLORIDE 88 mmol/L (98-107); CO2 28 mmol/L (21-32); CREATININE 2.8 mg/dL (0.6-1.0); GLUCOSE 118 mg/dL (74-106); POTASSIUM 4.2 mmol/L (3.5-5.1); SODIUM 127 mmol/L (136-145)
[2016-12-11] MEDS ORDERED: ROXICODONE5 M2 PO (07:23)
[2016-12-11] MEDS ORDERED: XANAX 0.25 MG0.25 MG PO (07:24)
[2016-12-11] MEDS ORDERED: TYLENOL325 MG PO (07:24)
[2016-12-11 07:32] LABS: TROPONIN-I < 0.04 ng/mL (<0.04-0.07)
[2016-12-11 07:35] LABS: APTT 27.1 Seconds (24.5-32.8); INR 1.5; PROTIME 14.5 Seconds (9.3-11.4)
[2016-12-11 07:49] LABS: ANISOCYTOSIS 1+; METAMYELOCYTES 1 %; MYELOCYTES 1 %; TOTAL CELL COUNT 100
[2016-12-12] VITALS (30 sets, daily range): BP systolic 94–128; BP diastolic 54–92
[2016-12-12 05:13] LABS: ALBUMIN 2.7 g/dL (3.4-5.0); CALCIUM 8.2 mg/dL (8.5-10.1); CREATININE 1.9 mg/dL (0.6-1.0); PHOSPHORUS 3.7 mg/dL (2.5-4.9); POTASSIUM 4.4 mmol/L (3.5-5.1)
[2016-12-12 16:10] LABS: HEP B SURFACE Ab(ANTI-HBS Non Reactive (())
[2016-12-13 03:26] VITALS: BP 117/71
[2016-12-13 04:13] LABS: INR 2.4; PROTIME 24.1 Seconds (9.3-11.4)
[2016-12-13 04:19] LABS: ALBUMIN 2.9 g/dL (3.4-5.0); CALCIUM 9.1 mg/dL (8.5-10.1); PHOSPHORUS 4.6 mg/dL (2.5-4.9); POTASSIUM 4.3 mmol/L (3.5-5.1)
[2016-12-13 08:44] VITALS: BP 170/92
[2016-12-13 16:22] VITALS: BP 82/50
[2016-12-13 20:30] VITALS: BP 110/67
[2016-12-14 05:30] VITALS: BP 123/79
[2016-12-14 07:20] LABS: INR 3.6; PROTIME 36.6 Seconds (9.3-11.4)
[2016-12-14 08:18] VITALS: BP 114/70
[2016-12-14 09:03] LABS: ABSOLUTE NEUTROPHILS 16.8 thou/uL (1.4-8.2); BASOPHILS 0.3 % (0.0-2.0); EOSINOPHILS 0.1 % (0.0-3.0); HEMATOCRIT 24.4 % (37.0-47.0); HEMOGLOBIN 7.8 gm/dL (12.0-15.0); LYMPHOCYTES 3.8 % (24.0-44.0); MCH 28.9 pg (26.0-34.0); MCHC 31.9 g/dL (28.0-37.0); MCV 90.5 fL (80.0-100.0); MONOCYTES 1.7 % (1.0-8.0); PLATELET COUNT 81 thou/uL (150-400); POLYS 94.1 % (36.0-66.0); RBC 2.69 mil/uL (4.20-5.00); WBC 17.8 thou/uL (4.0-11.0)
[2016-12-14 09:04] LABS: MANUAL DIFF NO
[2016-12-14 15:21] VITALS: BP 95/46
[2016-12-14 20:22] VITALS: BP 113/66
[2016-12-15 04:26] VITALS: BP 82/49
[2016-12-15 08:05] LABS: INR 4.4; PROTIME 43.5 Seconds (9.3-11.4)
[2016-12-15 09:23] VITALS: BP 90/57
[2016-12-15 17:09] VITALS: BP 89/59
[2016-12-15 20:00] VITALS: BP 88/53
[2016-12-16 04:30] VITALS: BP 97/68
[2016-12-16 05:03] LABS: PROTIME 58.9 Seconds (9.3-11.4)
[2016-12-16 05:08] LABS: INR 5.9
[2016-12-16 05:29] LABS: ALBUMIN 2.4 g/dL (3.4-5.0); CALCIUM 8.7 mg/dL (8.5-10.1); CREATININE 4.2 mg/dL (0.6-1.0); PHOSPHORUS 4.6 mg/dL (2.5-4.9); POTASSIUM 4.6 mmol/L (3.5-5.1)
[2016-12-16 08:21] VITALS: BP 95/63
[2016-12-16 13:05] LABS: PROTIME 42.1 Seconds (9.3-11.4)
[2016-12-16 13:08] LABS: INR 4.2
[2016-12-16 16:43] VITALS: BP 120/22
[2016-12-16 23:44] VITALS: BP 101/63; BP 119/77
[2016-12-17] VITALS (8 sets, daily range): BP systolic 96–118; BP diastolic 58–74
[2016-12-17 06:32] LABS: PROTIME 30.4 Seconds (9.3-11.4)
[2016-12-17 18:37] LABS: INR 2.5; PROTIME 25.6 Seconds (9.3-11.4)
[2016-12-18 04:37] VITALS: BP 125/89
[2016-12-18 06:13] LABS: INR 1.8; PROTIME 18.6 Seconds (9.3-11.4)
[2016-12-18 06:21] LABS: ALBUMIN 2.9 g/dL (3.4-5.0); CALCIUM 9.2 mg/dL (8.5-10.1); CREATININE 1.9 mg/dL (0.6-1.0); PHOSPHORUS 2.4 mg/dL (2.5-4.9); POTASSIUM 3.2 mmol/L (3.5-5.1)
[2016-12-18 07:38] LABS: HIV-1 P24 AG Nonreactive (Nonreactive)
[2016-12-18 10:20] VITALS: BP 122/75
[2016-12-18 11:30] VITALS: BP 105/72
[2016-12-18 16:08] LABS: HBsAG-EMPLOYEE EXPOSURE Negative (Negative); HCV AB-EMPLOYEE EXPOSURE 0.1 (0.0-0.9)
[2016-12-18 16:45] VITALS: BP 99/57
[2016-12-18 21:15] VITALS: BP 105/72
[2016-12-19 02:21] VITALS: BP 145/77
[2016-12-19 05:58] LABS: INR 1.7; PROTIME 17.1 Seconds (9.3-11.4)
[2016-12-19 06:06] LABS: CALCIUM 9.7 mg/dL (8.5-10.1); PHOSPHORUS 3.1 mg/dL (2.5-4.9); POTASSIUM 3.7 mmol/L (3.5-5.1)
[2016-12-19 07:59] VITALS: BP 119/80
[2016-12-19 16:21] VITALS: BP 107/65
[2016-12-19 19:58] VITALS: BP 106/72
[2016-12-20 04:07] VITALS: BP 121/82
[2016-12-20 06:02] LABS: CALCIUM 9.5 mg/dL (8.5-10.1); PHOSPHORUS 3.9 mg/dL (2.5-4.9)
[2016-12-20 07:31] VITALS: BP 126/79
[2016-12-20 10:53] VITALS: BP 126/79
[2016-12-20 16:12] VITALS: BP 127/85
[2016-12-20 20:00] VITALS: BP 114/73
[2016-12-21 03:38] LABS: ALBUMIN 2.8 g/dL (3.4-5.0); CALCIUM 9.1 mg/dL (8.5-10.1); PHOSPHORUS 3.7 mg/dL (2.5-4.9)
[2016-12-21 03:40] LABS: POTASSIUM 2.9 mmol/L (3.5-5.1)
[2016-12-21 04:00] VITALS: BP 138/91
[2016-12-21 08:40] LABS: ABG SAMPLE TYPE ARTERIAL; BE(vivo) 3.2 mmol/L (-2 to +3); HCO3 26.3 mmol/L (22.0-26.0); LACTATE 1.51 mmol/L (0.5-2.0); O2(CT) 11.3 mL/dL (15.0-23.0); O2Hb 89.8 % (92.0-98.0); PCO2 34.4 mmHg (35.0-45.0); STICK SITE R.RADIAL; pH 7.502 (7.360-7.450); sO2 93.5 % (92.0-98.0); tCO2 27.4 mmol/L (24.0-30.0)
[2016-12-21 18:19] VITALS: BP 139/87
[2016-12-21 20:00] VITALS: BP 118/85
[2016-12-22 03:49] VITALS: BP 129/80
[2016-12-22 08:56] VITALS: BP 120/83
[2016-12-22 15:42] VITALS: BP 131/85
[2016-12-22 20:30] VITALS: BP 126/95
[2016-12-23 04:30] VITALS: BP 134/87
[2016-12-23 05:30] LABS: ALBUMIN 2.9 g/dL (3.4-5.0); CALCIUM 8.9 mg/dL (8.5-10.1); CREATININE 3.3 mg/dL (0.6-1.0); PHOSPHORUS 4.4 mg/dL (2.5-4.9); POTASSIUM 3.8 mmol/L (3.5-5.1)
[2016-12-23 06:08] LABS: ABG SAMPLE TYPE ARTERIAL; BE(vivo) 1.6 mmol/L (-2 to +3); HCO3 25.2 mmol/L (22.0-26.0); O2(CT) 9.1 mL/dL (15.0-23.0); O2Hb 89.1 % (92.0-98.0); PO2 60.3 mmHg (80.0-100.0); pH 7.475 (7.360-7.450); sO2 92.9 % (92.0-98.0); tCO2 26.3 mmol/L (24.0-30.0)
[2016-12-23 06:09] LABS: STICK SITE R.RADIAL
[2016-12-23 08:10] VITALS: BP 152/94
[2016-12-23 16:16] VITALS: BP 115/71
[2016-12-23 20:00] VITALS: BP 116/74
[2016-12-24 03:29] VITALS: BP 124/79
[2016-12-24 06:04] LABS: HEMATOCRIT 22.4 % (37.0-47.0); HEMOGLOBIN 7.6 gm/dL (12.0-15.0); MCH 29.9 pg (26.0-34.0); MCHC 33.9 g/dL (28.0-37.0); MCV 88.3 fL (80.0-100.0); RBC 2.54 mil/uL (4.20-5.00); RDW 17.3 % (10.5-14.5); WBC 10.6 thou/uL (4.0-11.0)
[2016-12-24 06:26] LABS: CALCIUM 8.9 mg/dL (8.5-10.1); CREATININE 2.5 mg/dL (0.6-1.0); PHOSPHORUS 3.4 mg/dL (2.5-4.9); POTASSIUM 3.8 mmol/L (3.5-5.1)
[2016-12-24 10:14] VITALS: BP 124/79
[2016-12-24 16:00] VITALS: BP 139/95
[2016-12-24 20:30] VITALS: BP 118/83
[2016-12-25 03:08] VITALS: BP 143/98
[2016-12-25 04:30] VITALS: BP 136/88
[2016-12-25 08:07] VITALS: BP 131/85
[2016-12-25] MEDS ORDERED: RIFAMPIN 300 M300 M1 PO (12:25)
[2016-12-25] MEDS ORDERED: ENOXAPARIN30 MG/0.1 SUBQ (12:26)
[2016-12-25] MEDS ORDERED: VANCO 1 GR1 GM/250 M IVPB (12:26)
[2016-12-25] MEDS ORDERED: HYDROCODON-ACE1 EAC7 PO (12:27)
[2016-12-25] MEDS ORDERED: CARVEDILOL25 MG PO (12:27)
[2016-12-25] MEDS ORDERED: NEPHROCAPS SOFT1 CAP PO (12:28)
[2016-12-25] MEDS ORDERED: PREDNISONE 20 M20 M1 PO (12:28)
[2016-12-25] MEDS ORDERED: HUMALOG100 UNIT/1 SUBQ (12:28)
[2016-12-25] MEDS ORDERED: MELATONIN5 M1 PO (12:29)
[2016-12-25] MEDS ORDERED: ALPRAZOLAM 0.0.25 M1 PO (12:29)
[2016-12-25 20:42] VITALS: BP 99/55
[2016-12-26 03:55] VITALS: BP 104/69
[2016-12-26 07:53] VITALS: BP 121/76
== END 2016-12-26 13:46 | DRG 291 ==
LOC: ER 06:19 → ICU 07:59 → EROBS 07:59 → 4E 07:59 → ICU 10:25 → 4E 12-12 10:53
PROVIDERS: Emergency Medicine; Hospitalist; Internal Medicine Geriatric Medicine; Internal Medicine Nephrology; Internal Medicine Pulmonary Disease
DX: I13.2 Hypertensive heart and chronic kidney disease with heart failure and with stage 5 chronic kidney disease, or end stage renal disease (principal); I50.31 Acute diastolic (congestive) heart failure; N18.6 End stage renal disease; J96.21 Acute and chronic respiratory failure with hypoxia; E87.1 Hypo-osmolality and hyponatremia; D68.59 Other primary thrombophilia; K21.9 Gastro-esophageal reflux disease without esophagitis; F31.9 Bipolar disorder, unspecified; M79.7 Fibromyalgia; M32.14 Glomerular disease in systemic lupus erythematosus; D64.9 Anemia, unspecified; E11.22 Type 2 diabetes mellitus with diabetic chronic kidney disease; E87.6 Hypokalemia; Z91.14 Patient's other noncompliance with medication regimen; Z90.710 Acquired absence of both cervix and uterus; Z87.891 Personal history of nicotine dependence; Z98.1 Arthrodesis status; Z99.2 Dependence on renal dialysis; Z95.1 Presence of aortocoronary bypass graft; Z86.718 Personal history of other venous thrombosis and embolism; Z88.1 Allergy status to other antibiotic agents; Z88.5 Allergy status to narcotic agent; Z88.8 Allergy status to other drugs, medicaments and biological substances; Z82.49 Family history of ischemic heart disease and other diseases of the circulatory system
CPT/HCPCS: 10078; 10183; 32100

== ENCOUNTER 2016-12-30 12:51 | Emergency (ER) | payer OTHER ==
[~2016-12-30 12:51] MED LIST changes: +ALPRAZOLAM 0.0.25 M1 PO; +CARVEDILOL25 MG PO; +CATAPRES0.2 MG PO; +COLACE100 MG PO; +COREG25 MG PO; +ENOXAPARIN30 MG/0.1 SUBQ; +FUROSEMIDE 40 M40 M1 PO; +HUMALOG100 UNIT/1 SUBQ; +MELATONIN5 M1 PO; +MIRALAX17 GM PO; +NEPHROCAPS SOFT1 CAP PO; +NORVASC10 MG PO; +RIFAMPIN 300 M300 M1 PO; +ROXICODONE5 M2 PO; +TYLENOL325 MG PO; +VANCO 1 GR1 GM/250 M IVPB; +VENELEX OINTMEN60 GM TP; +XANAX 0.25 MG0.25 MG PO
== END 2016-12-30 18:14 ==
LOC: ER 12:51
DX: I46.9 Cardiac arrest, cause unspecified (principal); Z98.890 Other specified postprocedural states; Z88.1 Allergy status to other antibiotic agents; Z88.5 Allergy status to narcotic agent; Z87.891 Personal history of nicotine dependence